=== PATIENT | female | born 1990 | race Caucasian/White ===

== ENCOUNTER 2016-05-15 09:47 | Emergency (ER) | payer BC, OTHER ==
[~2016-05-15] VITALS: Ht 172.7 cm; Wt 116.2 kg
[~2016-05-15 09:47] MED LIST: MTR600X PO; PRENTAB26 PO
[2016-05-15 09:52] VITALS: TEMP 36.8; Ht 172.7 cm; Wt 116.2 kg
[2016-05-15] MEDS ORDERED: SODIUM CHLORIDE 0.9% 1000ML 1,000 ML IV STA (10:03)
[2016-05-15] MEDS ORDERED: SODIUM CHLORIDE 0.9% 1000ML 500 ML IV STA (10:03)
[2016-05-15] MEDS ORDERED: ONDANSETRON INJ 2 MG/ML 2 ML VIAL IV STA (10:03)
[2016-05-15] MEDS ORDERED: KETOROLAC TROMETHAMINE 30 MG/ML VIAL IV STA (10:03)
--- NOTE | 2016-05-15 10:08 | EMERGENCY ROOM VISIT NOTE ---
History Report prepared by Angelika: Celso Wilson Under the Supervision of: Dr. Senthil Ya M.D. First contact with patient: 09:57 Chief Complaint: GI ASSESSMENT Stated Complaint: BLOATED AND RASH ON STOMACH History of Present Illness The patient is a 25 year old female who presents to the Emergency Room with complaints of worsening abdominal pain beginning 5 days ago. She describes her pain as feeling bloated, notes it radiates up her abdomen, is worsened with laying down, and rates her pain a 6/10 with standing which rises to a 10/10 upon laying down. She denies radiation of her pain to the back. She adds that she woke up this morning with an itchy rash on her abdomen and hips. The patient denies having any nausea, vomiting, diarrhea or urinary symptoms. She has never had these symptoms before, and reports her pain is not affected with eating. The patient notes having no known medical problems, no known drug allergies, and has not started any new medications recently. She has tried Ibuprofen for pain without relief of her symptoms. She denies any chance of , and reports having 2 children via vaginal in the past. Source of History: patient Onset: 5 days ago Position: abdomen Symptom Intensity: 6/10 with standing; 10/10 with laying down Quality: other (bloating) Timing: worsening Modifying Factors (Worsening): other (laying down) Associated Symptoms: + rash (on abdomen and hips), No diarrhea, No nausea, No urinary symptoms, No vomiting Review of Systems See HPI for pertinent positives & negatives. A total of 10 systems reviewed and were otherwise negative. Past Medical & Surgical Medical Problems: (1) Dizziness (2) LABOR (3) LABOR (4) No Known Active Medical Problems (5) (6) Urinary tract infection Family History No pertinent family history stated. Social History Smoking Status: Former Smoker Marital Status: single Occupation Status: employed Current/Historical Medications Scheduled Iud's (Paragard Intrauterine Programmer Or Analyst), 1 DOSE VAGRING DIRECTED Omeprazole (Prilosec), 20 MG PO DAILY Ranitidine (Zantac), 150 MG PO BID Allergies Coded Allergies: No Known Allergies (Unverified , 05/15/16) Physical Exam Vital Signs Date Time Temp Pulse Resp B/P Pulse Ox O2 Delivery O2 Flow Rate FiO2 05/15/16 13:45 69 16 109/71 98 Room Air 05/15/16 11:46 76 18 105/74 98 Room Air 05/15/16 09:52 36.8 124 20 107/85 97 Room Air Physical Exam GENERAL: Patient is in no acute distress. HEENT: No acute trauma, normocephalic atraumatic, mucous membranes moist, no nasal congestion, no scleral icterus. NECK: No stridor, no adenopathy, no meningismus, trachea is midline. LUNGS: Clear to auscultation bilaterally, no wheeze, no rhonchi, breath sounds equal. HEART: Tachycardic with regular rhythm; no murmurs. ABDOMEN: Soft; tenderness diffusely but mostly in the right upper quadrant; pain worsens to lie flat; bowel sounds positive, no hernias, no peritonitis. EXTREMITIES: No cyanosis or edema, full range of motion of all the joints without pain or difficulty, no signs for acute trauma. NEUROLOGIC: Oriented x 3, no acute motor or sensory deficits, no focal weakness. SKIN: No rash, no jaundice, no diaphoresis. Medical Decision & Procedures ER Provider Diagnostic Interpretation: X ray results and stated below per my interpretation and radiologist interpretation. Other radiology results and stated below per my review and radiologist interpretation: CHEST ONE VIEW PORTABLE FINDINGS: The bones soft tissues and hemidiaphragms are normal. The cardiomediastinal silhouette is normal. The lungs are clear. The pulmonary vasculature is normal. IMPRESSION: Negative chest. Electronically signed by: Chance Vicente M.D. 05/15/2016 10:17 AM Dictated Date/Time: 05/15/2016 10:17 AM ABDOMEN AND PELVIS CT WITH IV CONTRAST FINDINGS: The lung bases are clear. The liver, spleen, gallbladder, pancreas, kidneys, and adrenal glands are within normal limits. No bowel wall thickening or obstruction. The pelvic organs are unremarkable. No suspicious lytic or blastic osseous lesions. The appendix is normal. Trace amount of free fluid within the right central pelvis most likely physiologic. Nonobstructive bowel pattern. IMPRESSION: No significant abnormality identified within the abdomen or pelvis. Normal appendix. Nonobstructive bowel pattern. Electronically signed by: Chance Vicente M.D. 05/15/2016 12:49 PM Dictated Date/Time: 05/15/2016 12:47 PM Right upper quadrant ultrasound GALLBLADDER-ABD LIMITED FINDINGS: Normal gallbladder. Common bile duct is 5 mm. Liver and pancreas are uniform. The right kidney is negative for hydronephrosis. IMPRESSION: Normal study Electronically signed by: Chance Vicente M.D. 05/15/2016 12:25 PM Dictated Date/Time: 05/15/2016 12:24 PM Laboratory Results 05/15/16 10:25 Red Blood Count 4.63, Mean Corpuscular Volume 82.9, Mean Corpuscular Hemoglobin 27.9, Mean Corpuscular Hemoglobin Concent 33.6, Mean Platelet Volume 10.4, Neutrophils (%) (Auto) 59.8, Lymphocytes (%) (Auto) 17.8, Monocytes (%) (Auto) 13.2, Eosinophils (%) (Auto) 9.0, Basophils (%) (Auto) 0.1, Neutrophils # (Auto ) 4.65, Lymphocytes # (Auto) 1.39, Monocytes # (Auto) 1.03, Eosinophils # (Auto ) 0.70, Basophils # (Auto) 0.01 05/15/16 10:25 Test 05/15/16 10:25 05/15/16 10:46 White Blood Count 7.79 K/uL (4.8-10.8) Red Blood Count 4.63 M/uL (4.2-5.4) Hemoglobin 12.9 g/dL (12.0-16.0) Hematocrit 38.4 % (37-47) Mean Corpuscular Volume 82.9 fL (80-100) Mean Corpuscular Hemoglobin 27.9 pg (25-34) Mean Corpuscular Hemoglobin Concent 33.6 g/dl (32-36) Platelet Count 255 K/uL (130-400) Mean Platelet Volume 10.4 fL (7.4-10.4) Neutrophils (%) (Auto) 59.8 % Lymphocytes (%) (Auto) 17.8 % Monocytes (%) (Auto) 13.2 % Eosinophils (%) (Auto) 9.0 % Basophils (%) (Auto) 0.1 % Neutrophils # (Auto) 4.65 K/uL (1.4-6.5) Lymphocytes # (Auto) 1.39 K/uL (1.2-3.4) Monocytes # (Auto) 1.03 K/uL (0.11-0.59) Eosinophils # (Auto) 0.70 K/uL (0-0.5) Basophils # (Auto) 0.01 K/uL (0-0.2) RDW Standard Deviation 42.8 fL (36.4-46.3) RDW Coefficient of Variation 14.1 % (11.5-14.5) Immature Granulocyte % (Auto) 0.1 % Immature Granulocyte # (Auto) 0.01 K/uL (0.00-0.02) Anion Gap 11.0 mmol/L (3-11) Est Creatinine Clear Calc Drug Dose 158.3 ml/min Estimated GFR () 132.4 Estimated GFR (Non- 114.2 BUN/Creatinine Ratio 9.9 (10-20) Calcium Level 8.5 mg/dl (8.5-10.1) Total Bilirubin 0.2 mg/dl (0.2-1) Aspartate Amino Transf (AST/SGOT) 14 U/L (15-37) Alanine Aminotransferase (ALT/SGPT) 21 U/L (12-78) Alkaline Phosphatase 82 U/L (45-117) Total Protein 7.4 gm/dl (6.4-8.2) Albumin 3.2 gm/dl (3.4-5.0) Globulin 4.2 gm/dl (2.5-4.0) Albumin/Globulin Ratio 0.8 (0.9-2) Lipase 157 U/L (73-393) Human Chorionic Gonadotropin, Qual NEG (NEG) Urine Color YELLOW Urine Appearance CLEAR (CLEAR) Urine pH 5.0 (4.5-7.5) Urine Specific [place] 1.019 (1.000-1.030) Urine Protein NEG (NEG) Urine Glucose (UA) NEG (NEG) Urine Ketones NEG (NEG) Urine Occult Blood TRACE (NEG) Urine Nitrite NEG (NEG) Urine Bilirubin NEG (NEG) Urine Urobilinogen NEG (NEG) Urine Leukocyte Esterase TRACE (NEG) Urine WBC (Auto) 1-5 /hpf (0-5) Urine RBC (Auto) 0-4 /hpf (0-4) Urine Hyaline Casts (Auto) 1-5 /lpf (0-5) Urine Epithelial Cells (Auto) >30 /lpf (0-5) Urine Bacteria (Auto) NEG (NEG) Laboratory results reviewed by me. Medications Administered Medications (Trade) Dose Ordered Sig/Monico Route Start Time Stop Time Status Last Admin Dose Admin Sodium Chloride (Nss 1000ml) 500 ml @ 999 mls/hr Q31M STAT IV 05/15/16 10:03 05/15/16 10:33 DC 05/15/16 10:03 999 MLS/HR Ondansetron HCl 4 mg 4 mg NOW STAT IV 05/15/16 10:03 05/15/16 10:06 DC 05/15/16 10:40 4 MG Sodium Chloride (Nss 1000ml) 1,000 ml @ 200 mls/hr Q5H STAT IV 05/15/16 10:03 05/15/16 14:07 DC 05/15/16 10:03 200 MLS/HR Morphine Sulfate (MoRPHine SULFATE INJ) 4 mg Q30M PRN IV 05/15/16 10:15 05/15/16 14:07 DC 05/15/16 10:42 4 MG Ketorolac Tromethamine (Toradol Inj) 30 mg NOW STAT IV 05/15/16 10:03 05/15/16 10:06 DC 05/15/16 10:03 30 MG ED Course 0958: The patient was evaluated in room B3B. A complete history and physical exam was performed. 1003: Ordered Toradol Inj 30 mg IV, NSS 1,000 ml @ 200 mls/hr IV, Zofran Inj 4 mg IV, and NSS 500 ml @ 999 mls/hr IV. 1015: Ordered Morphine Sulfate 4 mg IV. 1303: I updated the patient and she is doing well. 1310: Reevaluated the patient. Discussed results and discharge instructions: She verbalized understanding and agreement. The patient is ready for discharge. Medical Decision Differentials include acute cholecystitis, biliary colic, pancreatitis, pneumonia, UTI, appendicitis, bowel obstruction, constipation, viral illness, and hernia. There is no leukocytosis or concerning anemia. No significant electrolyte abnormality, kidney failure, hepatitis or pancreatitis. Urinalysis does not show infection. testing is negative. Gallbladder ultrasound shows no gallstones or acute cholecystitis. Abdominal and pelvis CT does not show evidence for bowel obstruction, diverticulitis or appendicitis. The patient received IV morphine, IV Toradol, IV saline and IV Zofran, she feels improved. The patient's doing well, I do think she can be discharged. I will start her on medications for gastritis and stomach upset. She was prescribed Prilosec and Zantac. The patient was encouraged to stick to very simple and bland diet. If things are worsening, she will return for reassessment. She understands that at this point, the cause for the symptom complex is unclear. Impression Primary Impression: Epigastric abdominal pain Scribe Attestation The scribe's documentation has been prepared under my direction and personally reviewed by me in its entirety. I confirm that the note above accurately reflects all work, treatment, procedures, and medical decision making performed by me. Departure Information Dispostion Home / Self-Care Prescriptions Omeprazole (PRILOSEC) 20 Mg Capcr 20 MG PO DAILY, #30 CAP Prov: Senthil Ya M.D. 05/15/16 Ranitidine (Zantac) 150 Mg Tab 150 MG PO BID, #28 TAB Prov: Senthil Ya M.D. 05/15/16 Referrals No Doctor, Assigned (PCP) Patient Instructions [facility] Additional Instructions rest bland diet--crackers, soup, gatorade prilosec daily for 1 week zantac 2x per day for 2 weeks tylenol or motrin for pain return for fever, worsening symptoms all testing today was ok follow with alistair lemus this week
[2016-05-15] MEDS ORDERED: IUD'IUD VAGRING (10:12)
[2016-05-15] MEDS ORDERED: MoRPHine SULFATE 4 MG/ML 1 ML CARP\\VIAL IV PRN (10:15)
[2016-05-15] MEDS ORDERED: OPTIRAY 320 IV PRN (10:15)
--- NOTE | 2016-05-15 10:18 | DIAGNOSTIC IMAGING REPORT ---
CHEST ONE VIEW PORTABLE CLINICAL HISTORY: ABDOMINAL PAIN/GI pain COMPARISON STUDY: 01/06/2014 FINDINGS: The bones soft tissues and hemidiaphragms are normal. The cardiomediastinal silhouette is normal. The lungs are clear. The pulmonary vasculature is normal. IMPRESSION: Negative chest. Electronically signed by: Chance Vicente M.D. 05/15/2016 10:17 AM Dictated Date/Time: 05/15/2016 10:17 AM
[2016-05-15 10:36] LABS: BASO % 0.1 %; BASO ABS # 0.01 K/uL (0-0.2); COMPLETE YES; HEMATOCRIT 38.4 % (37-47); IG% 0.1 %; LYMPH % 17.8 %; LYMPH ABS # 1.39 K/uL (1.2-3.4); MEAN CELL VOLUME 82.9 fL (80-100); MEAN CORPUSCULAR HEMOGLOBIN 27.9 pg (25-34); MEAN CORPUSCULAR HGB CONC 33.6 g/dl (32-36); MEAN PLATELET VOLUME 10.4 fL (7.4-10.4); MONO % 13.2 %; NEUT % 59.8 %; PLATELET COUNT 255 K/uL (130-400); RED BLOOD COUNT 4.63 M/uL (4.2-5.4); WHITE BLOOD COUNT 7.79 K/uL (4.8-10.8)
[2016-05-15 10:45] LABS: PREG INTERNAL NEGATIVE QC NEG CLEAR BACKGROUND; PREG INTERNAL POSITIVE QC POS CONTROL LINE
[2016-05-15 10:59] LABS: URINE APPEARANCE CLEAR (CLEAR); URINE BILIRUBIN NEG (NEG); URINE COLOR YELLOW; URINE EPITHELIAL CELL AUTO >30 /lpf (0-5); URINE NITRITE NEG (NEG); URINE SPECIFIC GRAVITY 1.019 (1.000-1.030); UROBILINOGEN NEG (NEG); ZZUR CULT IF INDIC CLEAN CATCH NO
[2016-05-15 11:01] LABS: MANUAL MICROSCOPIC REQUIRED? NO; REVIEW REQ? NO
[2016-05-15 12:07] LABS: BUN/CREATININE RATIO 9.9 (10-20); CALCIUM 8.5 mg/dl (8.5-10.1); CREATININE 0.74 mg/dl (0.60-1.20); POTASSIUM 3.5 mmol/L (3.5-5.1)
[2016-05-15 12:10] LABS: ALB/GLOB RATIO 0.8 (0.9-2)
--- NOTE | 2016-05-15 12:26 | DIAGNOSTIC IMAGING REPORT ---
Right upper quadrant ultrasound GALLBLADDER-ABD LIMITED CLINICAL HISTORY: ABDOMINAL PAIN/GI pain. Nausea. TECHNIQUE: Ultrasound COMPARISON STUDY: None FINDINGS: Normal gallbladder. Common bile duct is 5 mm. Liver and pancreas are uniform. The right kidney is negative for hydronephrosis. IMPRESSION: Normal study Electronically signed by: Chance Vicente M.D. 05/15/2016 12:25 PM Dictated Date/Time: 05/15/2016 12:24 PM
--- NOTE | 2016-05-15 12:50 | DIAGNOSTIC IMAGING REPORT ---
ABDOMEN AND PELVIS CT WITH IV CONTRAST CT DOSE: 1235.48 mGy.cm HISTORY: Pain ABD PAIN, POSS APPY, IV CONTRAST ONLY TECHNIQUE: Multiaxial CT images of the abdomen and pelvis were performed following the use of intravenous contrast. COMPARISON STUDY: None. FINDINGS: The lung bases are clear. The liver, spleen, gallbladder, pancreas, kidneys, and adrenal glands are within normal limits. No bowel wall thickening or obstruction. The pelvic organs are unremarkable. No suspicious lytic or blastic osseous lesions. The appendix is normal. Trace amount of free fluid within the right central pelvis most likely physiologic. Nonobstructive bowel pattern. IMPRESSION: No significant abnormality identified within the abdomen or pelvis. Normal appendix. Nonobstructive bowel pattern. Electronically signed by: Chance Vicente M.D. 05/15/2016 12:49 PM Dictated Date/Time: 05/15/2016 12:47 PM
[2016-05-15] MEDS ORDERED: ZNTT/150 PO (13:25)
[2016-05-15] MEDS ORDERED: PRLSR20 PO (13:25)
[2016-05-15 13:45] VITALS: BP 109/71; PULSE 69; O2SAT 98
[2016-08-06] MEDS ORDERED: PRD20 PO (12:02)
[2016-08-06] MEDS ORDERED: PLMIH INH (12:02)
[2016-08-06] MEDS ORDERED: LEVO1TAB35 PO (12:03)
== END 2016-05-15 13:58 | disposition home or self-care (01) ==
LOC: C.EDB 09:48
DX: R10.13 Epigastric pain (principal); R21 Rash and other nonspecific skin eruption; Z79.899 Other long term (current) drug therapy

== ENCOUNTER 2016-08-04 22:39 | Inpatient (IN) | payer BC ==
[~2016-08-04] VITALS: Ht 172.7 cm; Wt 112.7 kg
[~2016-08-04 22:39] MED LIST changes: +IUD'IUD VAGRING; -MTR600X PO; -PRENTAB26 PO; +PRLSR20 PO; +ZNTT/150 PO
[2016-08-04] MEDS ORDERED: "\\\"MUSCLE RELAXER\\\"" PO (23:05)
[2016-08-04] MEDS ORDERED: ONDANSETRON INJ 2 MG/ML 2 ML VIAL IV STA (23:12)
[2016-08-04] MEDS ORDERED: SODIUM CHLORIDE 0.9% 1000ML 1,000 ML IV ONE (23:15)
[2016-08-04] MEDS ORDERED: MoRPHine SULFATE 4 MG/ML 1 ML CARP\\VIAL IV ONE (23:15)
[2016-08-04 23:51] LABS: BASO % 0.1 %; BASO ABS # 0.01 K/uL (0-0.2); COMPLETE YES; EOS % 6.6 %; HEMATOCRIT 37.1 % (37-47); IG% 0.3 %; LYMPH % 12.4 %; LYMPH ABS # 1.46 K/uL (1.2-3.4); MEAN CELL VOLUME 84.1 fL (80-100); MEAN CORPUSCULAR HEMOGLOBIN 28.6 pg (25-34); MEAN PLATELET VOLUME 10.6 fL (7.4-10.4); MONO % 10.7 %; NEUT % 69.9 %; PLATELET COUNT 228 K/uL (130-400); RED BLOOD COUNT 4.41 M/uL (4.2-5.4); WHITE BLOOD COUNT 11.82 K/uL (4.8-10.8)
[2016-08-04 23:57] LABS: URINE APPEARANCE CLOUDY (CLEAR); URINE BILIRUBIN NEG (NEG); URINE COLOR YELLOW; URINE EPITHELIAL CELL AUTO >30 /lpf (0-5); URINE NITRITE NEG (NEG); URINE SPECIFIC GRAVITY 1.029 (1.000-1.030); UROBILINOGEN NEG (NEG); ZZUR CULT IF INDIC CLEAN CATCH YES
[2016-08-05 00:04] LABS: MANUAL MICROSCOPIC REQUIRED? NO; REVIEW REQ? NO
[2016-08-05 00:12] LABS: BUN/CREATININE RATIO 10.1 (10-20); CALCIUM 8.3 mg/dl (8.5-10.1); CREATININE 0.63 mg/dl (0.60-1.20); MAGNESIUM 1.8 mg/dl (1.8-2.4); POTASSIUM 3.3 mmol/L (3.5-5.1)
[2016-08-05 00:15] LABS: ALB/GLOB RATIO 0.8 (0.9-2)
[2016-08-05] MEDS ORDERED: OPTIRAY 320 IV PRN (00:15)
[2016-08-05 04:00] VITALS: BP 98/69; PULSE 98; TEMP 36.8; O2SAT 97; Ht 172.7 cm; Wt 112.7 kg
--- NOTE | 2016-08-05 04:35 | History and Physical ---
History & Physical Date & Time of Service: Aug 05, 2016 at 04:26 Chief Complaint: Back Pain, Lungs Hurt, Hurts To Breath Primary Care Physician: Malcolm Borrego M.D. History of Present Illness Source: patient 26 y/o F without significant medical history presents with acute onset of L upper back pain which is exacerbated with deep breaths. She denies a cough, fever, malaise or congestion. She was evaluated in the ER and had an elevated D Dimer on initial labs. She was subsequently sent for a contrast CT. This was negative for PE but was consistent with a L upper lobe PNM in addition to mucous plugging and small B/L pleural effusions. Past Medical/Surgical History Medical Problems: (1) Dizziness Status: Resolved (2) LABOR Status: Resolved (3) LABOR Status: Resolved (4) Status: Resolved (5) Urinary tract infection Status: Resolved Family History Both parents alive and well Grandmother with lung CA Grandfather with Prostate CA Social History Lives at home with 2 young children - denies sick contacts Smoking Status: Never Smoker Alcohol Use: none Drug Use: none Marital Status: single Occupational Status: employed Immunizations History of Influenza Vaccine: Unknown History of Tetanus Vaccine?: Yes Multi-Drug Resistant Organisms History of MDRO: No Allergies Coded Allergies: No Known Allergies (Unverified , 08/04/16) Home Medications Scheduled Iud's (Paragard Intrauterine Skin Grader), 1 DOSE VAGRING DIRECTED ["Muscle Relaxer"], 1 DOSE PO DIRECTED Review of Systems Constitutional: No chills, No fever, No sweats Eyes: No eye pain, No worsening of vision ENT: No hearing loss, No nasal symptoms, No unusual epistaxis Respiratory: + problem reported (Pleuritic back pain), No cough, No sputum, No wheezing Cardiovascular: No PND, No chest pain, No orthopnea Abdomen: No nausea, No pain, No vomiting Musculoskeletal: + problem reported (Pleuritic back pain), No joint pain Genitourinary - Female: No dysuria, No hematuria, No urinary frequency, No urinary incontinence, No urinary retention, No urinary urgency Neurologic: No memory loss, No paralysis, No weakness Psychiatric: No depression symptoms Endocrine: No fatigue Hematologic / Lymphatic: No abnormal bleeding/bruising Integumentary: No rash Allergic / Immunologic: No environmental allergies Physical Exam Vital Signs Date Time Temp Pulse Resp B/P Pulse Ox O2 Delivery O2 Flow Rate FiO2 08/05/16 01:45 102 18 115/78 98 Room Air 08/04/16 23:40 114 08/04/16 23:37 98 Room Air 08/04/16 22:41 37.2 127 18 118/83 98 Room Air General Appearance: WD/WN, no apparent distress Head: normocephalic Eyes: normal inspection ENT: normal ENT inspection, pharynx normal Neck: supple, no JVD Respiratory/Chest: chest non-tender, lungs clear, normal breath sounds, no respiratory distress, no accessory muscle use Cardiovascular: regular rate, rhythm, no edema, no gallop, no JVD, no murmur Abdomen/GI: normal bowel sounds, non tender, soft Back: normal inspection, no CVA tenderness Extremities/Musculoskelatal: normal inspection, no calf tenderness, normal capillary refill, no pedal edema, normal range of motion Neurologic/Psych: pin drafting machine tender II-XII nml as tested, no motor/sensory deficits, alert, normal mood/affect, normal reflexes, oriented x 3 Skin: normal color, warm/dry, no rash Diagnostics Laboratory Results Results Past 24 Hours Test 08/04/16 23:30 08/04/16 23:34 Range/Units White Blood Count 11.82 4.8-10.8 K/uL Red Blood Count 4.41 4.2-5.4 M/uL Hemoglobin 12.6 12.0-16.0 g/dL Hematocrit 37.1 37-47 % Mean Corpuscular Volume 84.1 80-100 fL Mean Corpuscular Hemoglobin 28.6 25-34 pg Mean Corpuscular Hemoglobin Concent 34.0 32-36 g/dl Platelet Count 228 130-400 K/uL Mean Platelet Volume 10.6 7.4-10.4 fL Neutrophils (%) (Auto) 69.9 % Lymphocytes (%) (Auto) 12.4 % Monocytes (%) (Auto) 10.7 % Eosinophils (%) (Auto) 6.6 % Basophils (%) (Auto) 0.1 % Neutrophils # (Auto) 8.28 1.4-6.5 K/uL Lymphocytes # (Auto) 1.46 1.2-3.4 K/uL Monocytes # (Auto) 1.26 0.11-0.59 K/uL Eosinophils # (Auto) 0.78 0-0.5 K/uL Basophils # (Auto) 0.01 0-0.2 K/uL RDW Standard Deviation 46.8 36.4-46.3 fL RDW Coefficient of Variation 15.0 11.5-14.5 % Immature Granulocyte % (Auto) 0.3 % Immature Granulocyte # (Auto) 0.03 0.00-0.02 K/uL Urine Color YELLOW Urine Appearance CLOUDY CLEAR Urine pH 5.0 4.5-7.5 Urine Specific [place] 1.029 1.000-1.030 Urine Protein TRACE NEG Urine Glucose (UA) NEG NEG Urine Ketones NEG NEG Urine Occult Blood NEG NEG Urine Nitrite NEG NEG Urine Bilirubin NEG NEG Urine Urobilinogen NEG NEG Urine Leukocyte Esterase MODERATE NEG Urine WBC (Auto) >30 0-5 /hpf Urine RBC (Auto) 0-4 0-4 /hpf Urine Hyaline Casts (Auto) 10-30 0-5 /lpf Urine Epithelial Cells (Auto) >30 0-5 /lpf Urine Bacteria (Auto) 2+ NEG Sodium Level 136 136-145 mmol/L Potassium Level 3.3 3.5-5.1 mmol/L Chloride Level 104 98-107 mmol/L Carbon Dioxide Level 26 21-32 mmol/L Anion Gap 6.0 3-11 mmol/L Blood Urea Nitrogen 6 7-18 mg/dl Creatinine 0.63 0.60-1.20 mg/dl Est Creatinine Clear Calc Drug Dose 182.1 ml/min Estimated GFR () 145.5 Estimated GFR (Non- 125.5 BUN/Creatinine Ratio 10.1 10-20 Random Glucose 106 70-99 mg/dl Calcium Level 8.3 8.5-10.1 mg/dl Magnesium Level 1.8 1.8-2.4 mg/dl Total Bilirubin 0.3 0.2-1 mg/dl Aspartate Amino Transf (AST/SGOT) 12 15-37 U/L Alanine Aminotransferase (ALT/SGPT) 19 12-78 U/L Alkaline Phosphatase 82 45-117 U/L Total Protein 6.9 6.4-8.2 gm/dl Albumin 3.1 3.4-5.0 gm/dl Globulin 3.8 2.5-4.0 gm/dl Albumin/Globulin Ratio 0.8 0.9-2 Lipase 108 73-393 U/L Bedside D-Dimer > 450 0-450 ng/mlFEU Bedside Troponin I 0.000 0-0.045 ng/ml Microbiology Results 08/04/16 Urine Culture, Received Pending Diagnostic Radiology CTA RUL consolidation, distal mucous plugging, hazy b/l basal opacities Impression Assessment and Plan 26 y/o F without significant medical history presents with acute onset of L upper back pain which is exacerbated with deep breaths. She denies a cough, fever, malaise or congestion. She was evaluated in the ER and had an elevated D Dimer on initial labs. She was subsequently sent for a contrast CT. This was negative for PE but was consistent with a L upper lobe PNM in addition to mucous plugging and small B/L pleural effusions. Pt will be treated for PNM with IV Levaquin. She does not have risk factors for TB and is minimally symptomatic. We have therefore consulted pulmonology to help determine if she needs further workup based on her CT or if she can be D /Cd with oral antibiotics befitting her symptoms. Lovenox prophylaxis - full code Total time for this admit including review of labs, meds, imaging, records - discussion with pt and ER MD - 28 min Level of Care Med/Surg Resuscitation Status FULL RESUSCITATION VTE Prophylaxis Given or contraindicated: Enoxaparin (Lovenox)SQ
[2016-08-05] MEDS ORDERED: ZOLPIDEM TARTRATE 5 MG TAB PO PRN (06:00)
[2016-08-05] MEDS ORDERED: ACETAMINOPHEN 325 MG TAB PO PRN (06:00)
[2016-08-05] MEDS: LEVOFLOXACIN 750MG / D5W IV SCH (06:00)
[2016-08-05 07:10] VITALS: BP 93/55; PULSE 88; TEMP 36.8; O2SAT 99
--- NOTE | 2016-08-05 07:21 | EMERGENCY ROOM VISIT NOTE ---
History First contact with patient: 23:05 Chief Complaint: BACK PAIN Stated Complaint: PNEUMONIA, BACK PAIN History of Present Illness The patient is a 26 year old female who presents to the Emergency Room with complaints of vague right-sided back pain that began earlier today. The patient states that her pain worsens when she takes a deep breath. The pain will occasionally radiate into her chest. She has had no fever at home and is not taking anything [id number] for her symptoms. The patient does not report abdominal pain, nausea, or vomiting. Her symptoms do not appear to improve or worsen with position or movement of the shoulder. She is not having left-sided symptoms and rates her current discomfort a 7/10. Review of Systems More than 10 systems were reviewed and otherwise negative with the exception of history of present illness. 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 Vital signs with tachycardia GENERAL: Well-developed, well-nourished, white female, who is cooperative with the examination. HEAD: Normocephalic atraumatic. EARS: External ear normal. External auditory canals clear, tympanic membranes pearly watson without erythema or effusion bilaterally. EYES: Pupils equal round and reactive to light and accommodation. Conjunctivae without injection, sclerae without icterus. Extraocular movements intact. NOSE: Patent, turbinates without inflammation or discharge. MOUTH: Mucous membranes moist. Tonsils are not enlarged. Pharynx without erythema, blood, or exudate. Uvula midline. Airway patent. NECK: Supple without nuchal rigidity. No lymphadenopathy. No thyromegaly. Cervical spine is nontender. HEART: Tachycardic rate with regular rhythm. No murmur gallop or rub. LUNGS: Clear to auscultation bilaterally without wheezes, rales or rhonchi. No retractions or accessory muscle use. ABDOMEN: Normal bowel sounds 4. No tenderness on palpation. No appreciable masses. MUSCULOSKELETAL: No muscle atrophy, erythema, or edema noted. Full range of motion without joint tenderness in all extremities. Negative Homans sign. Medical Decision & Procedures ER Provider Diagnostic Interpretation: Preliminary Findings Only See Final Report For Complete Findings CTA CHEST: No PE. Aorta unremarkable. Posterior right upper lobe peripheral consolidation and distal bronchial mucus impaction with surrounding airspace opacities. More subtle groundglass opacities remainder of the right upper lobe. Hazy opacities bilateral lower lobes. Findings worrisome for infection. Tiny bilateral pleural effusions. Small mediastinal lymph nodes. Laboratory Results 08/04/16 23:30 Red Blood Count 4.41, Mean Corpuscular Volume 84.1, Mean Corpuscular Hemoglobin 28.6, Mean Corpuscular Hemoglobin Concent 34.0, Mean Platelet Volume 10.6, Neutrophils (%) (Auto) 69.9, Lymphocytes (%) (Auto) 12.4, Monocytes (%) (Auto) 10.7, Eosinophils (%) (Auto) 6.6, Basophils (%) (Auto) 0.1, Neutrophils # (Auto ) 8.28, Lymphocytes # (Auto) 1.46, Monocytes # (Auto) 1.26, Eosinophils # (Auto ) 0.78, Basophils # (Auto) 0.01 08/04/16 23:30 Test 08/04/16 23:30 08/04/16 23:34 White Blood Count 11.82 K/uL (4.8-10.8) Red Blood Count 4.41 M/uL (4.2-5.4) Hemoglobin 12.6 g/dL (12.0-16.0) Hematocrit 37.1 % (37-47) Mean Corpuscular Volume 84.1 fL (80-100) Mean Corpuscular Hemoglobin 28.6 pg (25-34) Mean Corpuscular Hemoglobin Concent 34.0 g/dl (32-36) Platelet Count 228 K/uL (130-400) Mean Platelet Volume 10.6 fL (7.4-10.4) Neutrophils (%) (Auto) 69.9 % Lymphocytes (%) (Auto) 12.4 % Monocytes (%) (Auto) 10.7 % Eosinophils (%) (Auto) 6.6 % Basophils (%) (Auto) 0.1 % Neutrophils # (Auto) 8.28 K/uL (1.4-6.5) Lymphocytes # (Auto) 1.46 K/uL (1.2-3.4) Monocytes # (Auto) 1.26 K/uL (0.11-0.59) Eosinophils # (Auto) 0.78 K/uL (0-0.5) Basophils # (Auto) 0.01 K/uL (0-0.2) RDW Standard Deviation 46.8 fL (36.4-46.3) RDW Coefficient of Variation 15.0 % (11.5-14.5) Immature Granulocyte % (Auto) 0.3 % Immature Granulocyte # (Auto) 0.03 K/uL (0.00-0.02) Urine Color YELLOW Urine Appearance CLOUDY (CLEAR) Urine pH 5.0 (4.5-7.5) Urine Specific [place] 1.029 (1.000-1.030) Urine Protein TRACE (NEG) Urine Glucose (UA) NEG (NEG) Urine Ketones NEG (NEG) Urine Occult Blood NEG (NEG) Urine Nitrite NEG (NEG) Urine Bilirubin NEG (NEG) Urine Urobilinogen NEG (NEG) Urine Leukocyte Esterase MODERATE (NEG) Urine WBC (Auto) >30 /hpf (0-5) Urine RBC (Auto) 0-4 /hpf (0-4) Urine Hyaline Casts (Auto) 10-30 /lpf (0-5) Urine Epithelial Cells (Auto) >30 /lpf (0-5) Urine Bacteria (Auto) 2+ (NEG) Anion Gap 6.0 mmol/L (3-11) Est Creatinine Clear Calc Drug Dose 182.1 ml/min Estimated GFR () 145.5 Estimated GFR (Non- 125.5 BUN/Creatinine Ratio 10.1 (10-20) Calcium Level 8.3 mg/dl (8.5-10.1) Magnesium Level 1.8 mg/dl (1.8-2.4) Total Bilirubin 0.3 mg/dl (0.2-1) Aspartate Amino Transf (AST/SGOT) 12 U/L (15-37) Alanine Aminotransferase (ALT/SGPT) 19 U/L (12-78) Alkaline Phosphatase 82 U/L (45-117) Total Protein 6.9 gm/dl (6.4-8.2) Albumin 3.1 gm/dl (3.4-5.0) Globulin 3.8 gm/dl (2.5-4.0) Albumin/Globulin Ratio 0.8 (0.9-2) Lipase 108 U/L (73-393) Bedside D-Dimer > 450 ng/mlFEU (0-450) Bedside Troponin I 0.000 ng/ml (0-0.045) Medications Administered Medications (Trade) Dose Ordered Sig/Monico Route Start Time Stop Time Status Last Admin Dose Admin Sodium Chloride (Nss 1000ml) 1,000 ml @ 999 mls/hr Q1H1M ONCE IV 08/04/16 23:15 08/05/16 00:15 DC 08/04/16 23:51 999 MLS/HR Ondansetron HCl (Zofran Inj) 4 mg NOW STAT IV 08/04/16 23:12 08/04/16 23:14 DC 08/04/16 23:51 4 MG Morphine Sulfate (MoRPHine SULFATE INJ) 4 mg NOW ONCE IV 08/04/16 23:15 08/04/16 23:16 DC 08/04/16 23:51 4 MG ED Course Physical exam and history were performed. Nursing notes and EMR were reviewed. Patient appears to have vague right sided shoulder pain/chest pain that began earlier today. Her symptoms do not appear to be exacerbated with range of motion. The patient is tachycardic without fever. IV access was established and labs were obtained. Review of EMR shows the patient was previously seen at this facility for gastritis symptoms. Because of this and did elect to perform plain films of the chest and abdomen. The patient blood work is as above and was reviewed. She does have a mildly elevated white blood cell count. She does not have a significant anemia, bandemia, or gross electrolyte imbalance. Her plain films do not show free air under the diaphragm, but are concerning for a possible right middle/right upper lobe process. Because of this, and an elevated d-dimer, a CT scan of the chest was performed. CT scan appears to show a right upper consolidation consistent with pneumonia. There is also concern for mucous impaction. There is no evidence of PE. I did gather additional history from the patient and she does not have risk factors for tuberculosis or known exposure to disease. Clinically she does have an elevated white blood cell count and is tachycardic with an infectious process. The patient was given IV Levaquin here in the department. The case was discussed with the on-call hospitalist, who agreed to evaluate the patient here in the emergency department for further management. Please see their dictation for further patient course, plan, and disposition. The chart was completed utilizing [employer] Speech Voice Recognition Software. Grammatical errors, random word insertions, pronoun errors, and incomplete sentences are an occasional consequence of this system due to software limitations, ambient noise, and hardware issues. Any formal questions or concerns about the content, text, or information contained within the body of this dictation should be directly addressed to the provider for clarification. . Medical Decision Differential diagnosis includes, but is not limited to: Myocardial infarction, dysrhythmia, pericarditis, pneumothorax, aortic aneurysm/dissection, DVT/PE, anxiety, GERD, PUD, electrolyte imbalance, thyroid disorder, pneumonia, bronchitis, pancreatitis, and others Impression Primary Impression: Pneumonia Departure Information Dispostion Still a Patient Condition FAIR Referrals Malcolm Borrego M.D. (PCP) Forms HOME CARE DOCUMENTATION FORM, IMPORTANT VISIT INFORMATION Patient Instructions My [facility]
--- NOTE | 2016-08-05 07:29 | DIAGNOSTIC IMAGING REPORT ---
PA CHEST WITH ABDOMINAL SERIES CLINICAL HISTORY: Right-sided chest pain. FINDINGS: A PA chest radiograph is compared to study dated 05/15/16. The cardiomediastinal silhouette is unremarkable. There is patchy airspace consolidation identified in the right midlung. The lungs are otherwise clear. No large pleural effusion or Pneumothorax is seen. The bony thorax is grossly intact. Supine and erect abdominal radiographs are correlated with abdominal CT dated 05/15/16. There is a nonobstructed abdominal bowel gas pattern. No evidence of intraperitoneal free air is seen. Mild colonic fecal retention is noted. An intrauterine device and numerous phleboliths are seen in the pelvis. The Lumbosacral spine and bony pelvis appear intact. IMPRESSION: 1. There is patchy airspace consolidation identified in the right midlung. Cortical clinically for evidence of pneumonia. Radiographic follow-up to resolution is recommended. 2. Nonobstructed abdominal bowel gas pattern. Electronically signed by: Senthil Power M.D. 08/05/2016 7:28 AM Dictated Date/Time: 08/05/2016 7:26 AM
--- NOTE | 2016-08-05 07:33 | DIAGNOSTIC IMAGING REPORT ---
CT ANGIOGRAM OF THE CHEST CLINICAL HISTORY: Right-sided chest pain. COMPARISON STUDY: Chest x-ray dated 08/04/2016. TECHNIQUE: Following the IV administration of 92 cc of Optiray 320, CT angiogram of the chest was performed from the upper abdomen to the thoracic inlet utilizing the pulmonary embolus protocol. Images are reviewed in the axial, sagittal, and coronal planes. 3-D MIPS images are created and assessed. IV contrast was administered without complication. CT DOSE: 465.34 mGy.cm FINDINGS: Thyroid: Imaged portions of the thyroid gland are normal in size and attenuation. Thoracic aorta: The thoracic aorta is normal in caliber and demonstrates standard 3-vessel arch anatomy. No dissection is seen. Pulmonary vasculature: The pulmonary trunk is dilated, measuring 4.0 cm. This indicates pulmonary artery hypertension. There are no filling defects identified in main, lobar, or segmental pulmonary branches to suggest pulmonary embolus. Heart: The heart is appears mildly enlarged and there is trace pericardial effusion. Lungs and pleural spaces: There is patchy airspace consolidation identified in the right upper lobe. There are trace pleural effusions, right larger than left and dependent atelectasis. Mediastinum: There is no mediastinal lymphadenopathy. Janeen: Clear. Axillae: There is no axillary lymphadenopathy. Upper abdomen: Partially visualized upper abdominal viscera is within normal limits. Skeletal structures: No lytic or blastic bony lesions are seen. IMPRESSION: 1. There is no evidence of pulmonary embolus in the main, lobar, or segmental pulmonary arteries. 2. There is patchy airspace consolidation in the right upper lobe typical in appearance for pneumonia. Radiographic follow-up to resolution is recommended. 3. Cardiomegaly with evidence of pulmonary artery hypertension. Cardiology follow-up is recommended. 4. Trace pleural effusions. Electronically signed by: Senthil Power M.D. 08/05/2016 7:32 AM Dictated Date/Time: 08/05/2016 7:28 AM
[2016-08-05] MEDS: TRAMADOL HCL 50 MG TAB PO PRN ×2 (08:21→19:08)
[2016-08-05] MEDS: POTASSIUM CHLR 10 MEQ / WTR 10 MEQ in PREMIXED WATER 100 ML IV SCH ×2 (08:30→09:44)
--- NOTE | 2016-08-05 11:32 | Progress Note ---
Progress Note Date of Service Aug 05, 2016. Progress Note Patient seen and examined at bedside. c/o right upper back discomfort, pleuritic no sob with ambulation, no abd pain, no urinary symptoms +sick contacts at work Vital Signs Date Time Temp Pulse Resp B/P Pulse Ox O2 Delivery O2 Flow Rate FiO2 08/05/16 07:10 36.8 88 18 93/55 99 08/05/16 04:00 Room Air nad, aox3, anicteric s1 s2 rrr, no murmurs appreciated ctab no w/r/r abd soft nt/nd +BS no LE edema will monitor overnight pulmonary eval and recs appreciated mucolytics for mucus plugging steroids levaquin for pneumonia
[2016-08-05] MEDS ORDERED: DORNASE ALFA (2500U) 2.5MG/2.5ML INH ONE (12:00)
[2016-08-05] MEDS: METHYLPREDNISOLONE IV 40 MG in SYRINGE 0 ML IV SCH ×2 (13:03→19:29)
--- NOTE | 2016-08-05 14:13 | CONSULTATION REPORT ---
DATE OF CONSULTATION: 08/05/2016 REASON FOR CONSULTATION: Right upper lobe pneumonia. HISTORY OF PRESENT ILLNESS: The patient is a 26-year-old female with really no significant past medical history who presented to [facility] Emergency Room late on the evening of 08/04/2016. She presented because of right back pain which had progressed. The back pain started approximately a day and a half prior to admission and the patient states that because she was moving out from her parents' house she thought it was from possibly moving or that one of her small children had inadvertently traumatized the area during sleep, so she took some ibuprofen which she did get a little bit of improvement with initially; however, the next day the pain came back and was much worse. She tried ibuprofen again, she also tried muscle relaxer without any significant improvement. She states that the pain was getting to the point where she felt it was hard to take deep breath in. She also felt it was difficult to swallow due to the discomfort. Initially, she did not really have much cough or wheeze; however, since she has been in the hospital, she has started to cough a little bit more. She has not had any fever or chills. She has felt a little bit more run down and tired, but she thought that was secondary to moving. She has not really felt congested in her chest. She has noticed that since she has been in the hospital, her shortness of breath has worsened and she is coughing much more. On reviewing the ER records when she came in, she did have an elevated D-dimer. She did have a CT to rule out pulmonary embolism. There was no evidence of pulmonary embolism on the CAT scan, however, did show a right upper lobe pneumonia as well as some trace bilateral pleural effusion. The patient denies any other concerns or problems at this time. She has not had any unusual headache or lightheadedness. No dizziness, no vision changes. She has not had any GI symptoms. No nausea or vomiting. Her appetite has been normal. She has not had any difficulties with diarrhea or constipation. Her bowels are moving normally. She has not had any cardiac symptoms. No palpitations. No cardiac type chest pain. She is voiding well. No hesitancy or urgency. She states that her last menstrual period was about 2-3 weeks ago. She does use an IUD for contraception. She has not had any difficulty with swelling in her extremities. As far as risk factor she is a former smoker. She smoked 1-2 cigarettes a day for approximately 2-3 years. 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 She also has had multiple tattoos placed; however, these are several years old. She states that she did get these from a well established, they did use fresh needle. The patient's main concern today is the increasing discomfort. She states that she thinks they are giving her tramadol for the pain. She states that last night it helped, but today it does not seem to be improving much. She has not had any other concerns or problems at this time. PAST MEDICAL HISTORY: Includes dizziness and UTI. PAST SURGICAL HISTORY: None. FAMILY HISTORY: She had a grandmother with lung cancer. Grandfather with prostate cancer. SOCIAL HISTORY: The patient is a former smoker having smoked 1-2 cigarettes a day. She is single with 2 children. Occasionally consumes alcohol. 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 She does get a PPD done yearly. HOME MEDICATIONS: Occasional muscle relaxers as needed. She also has an IUD placed. ALLERGIES: She has no known drug allergies. REVIEW OF SYSTEMS: As above, otherwise unremarkable. PHYSICAL EXAMINATION: GENERAL: The patient is a 26-year-old female sitting up in bed. She is alert and oriented x3. Mood is good. Affect is good. She is in no acute distress, no respiratory distress. She does appear uncomfortable at times with taking a deep breath and she is able to complete sentences without difficulty. HEENT: Normocephalic, atraumatic. Pupils equal, round and reactive to light and accommodation. Extraocular movements are intact. Moist gingival and buccal mucosa. NECK: Supple. No mass. No adenopathy. No bruit. Nontender to palpation. No JVD or thyromegaly. CHEST: The patient has diminished breath sounds on the right upper quadrant when listening posteriorly. I do not appreciate any wheeze, rales or rhonchi at this time. CARDIOVASCULAR: Regular rate and rhythm. The patient is slightly tachycardic today. There are no murmurs, gallops or rubs noted. ABDOMEN: Bowel sounds are present. Abdomen is soft and nontender. No guarding, rigidity or organomegaly. EXTREMITIES: No erythema or edema. NEUROLOGIC: Cranial nerves II through XII are intact. No focal deficit. VITAL SIGNS: Temp 36.8, pulse 88, respirations 18, blood pressure 93/55, pulse ox 99% on room air. LABORATORY DATA: Shows a white count of 11,000, H\T\H 12.6 and 37.1, platelet count of 228,000. Urine culture is pending. CT of the chest shows a right upper lobe consolidation, which is located posteriorly. In reviewing the images, the patient does have trace pleural effusion in the right. There is what appears to be some atelectatic changes in the bases bilaterally. IMPRESSION: This is a 26-year-old female with what appears to be a right upper lobe pneumonia that is located posteriorly and near enough to the pleural lining that I think she is getting some pleurisy and pleuritic type pain from this. I think this is the cause of her discomfort. I also think that she is getting some atelectatic changes from trying not to take deep breath due to the discomfort as well. At this point, I agree with the antibiotics that she is on. I would like to start her on some Solu-Medrol to see if it will both help with the respiratory as well as with the inflammation of the pleural lining, and see if we can get her a little bit of relief discomfort [place]. It looks like there may be some mucus present as well, so I would like start her on Dornase as well. We have planned also on incentive spirometer to see if we can expand the bases bilaterally. At this point, I would recommend to keep her at least overnight and reevaluate tomorrow. If she is doing well tomorrow, then would anticipate that she can probably be discharged to home. This was discussed with her. She is agreeable with this. Will continue to follow through hospitalization. Patient and history reviewed and plan agreed with. AKBAR
[2016-08-05] MEDS: LEVALBUTEROL 1.25MG/3ML NEB INH SCH ×2 (15:00→19:06)
[2016-08-05 15:06] VITALS: BP 107/55; PULSE 69; TEMP 36.6; O2SAT 98
[2016-08-05 15:09] VITALS: BP 107/72; PULSE 116; TEMP 37.1; O2SAT 97
[2016-08-05 16:21] VITALS: PULSE 78; O2SAT 99
[2016-08-05 19:06] VITALS: PULSE 79; O2SAT 95
[2016-08-05] MEDS ORDERED: DORNASE ALFA (2500U) 2.5MG/2.5ML INH SCH (20:00)
[2016-08-06 00:04] VITALS: BP 112/71; PULSE 92; TEMP 36.4; O2SAT 96
[2016-08-06] MEDS: LEVALBUTEROL 1.25MG/3ML NEB INH SCH (01:10)
[2016-08-06] MEDS: METHYLPREDNISOLONE IV 40 MG in SYRINGE 0 ML IV SCH ×2 (04:16→11:48)
[2016-08-06] MEDS: LEVOFLOXACIN 750MG / D5W IV SCH (06:11)
[2016-08-06 07:06] VITALS: BP 112/62; PULSE 80; TEMP 36.7; O2SAT 99
[2016-08-06 08:00] VITALS: O2SAT 99
[2016-08-06 08:55] LABS: BASO % 0.1 %; BASO ABS # 0.01 K/uL (0-0.2); COMPLETE YES; HEMATOCRIT 38.7 % (37-47); IG% 0.3 %; MEAN CELL VOLUME 83.6 fL (80-100); MEAN CORPUSCULAR HEMOGLOBIN 28.3 pg (25-34); MEAN CORPUSCULAR HGB CONC 33.9 g/dl (32-36); MEAN PLATELET VOLUME 10.5 fL (7.4-10.4); MONO % 1.7 %; NEUT % 87.9 %; PLATELET COUNT 288 K/uL (130-400); RED BLOOD COUNT 4.63 M/uL (4.2-5.4)
--- NOTE | 2016-08-06 08:56 | DIAGNOSTIC IMAGING REPORT ---
TWO VIEW CHEST CLINICAL HISTORY: Pneumonia. FINDINGS: PA and lateral chest radiographs are compared to study dated 08/04/2016 and correlated with chest CT dated 08/05/2016. The cardiomediastinal silhouette is unremarkable. Patchy airspace consolidation is again seen in the right upper lobe. There is increasing bibasilar consolidation, left greater than right. Small pleural effusions are identified. There is no pneumothorax. The bony thorax appears intact. IMPRESSION: Multifocal airspace consolidation as above with small pleural effusions. Consolidative change at the lung bases has increased from previous. Electronically signed by: Senthil Power M.D. 08/06/2016 8:54 AM Dictated Date/Time: 08/06/2016 8:53 AM
[2016-08-06 09:20] LABS: BUN/CREATININE RATIO 11.9 (10-20); CREATININE 0.58 mg/dl (0.60-1.20); MAGNESIUM 1.9 mg/dl (1.8-2.4); POTASSIUM 3.5 mmol/L (3.5-5.1)
[2016-08-06 09:35] LABS: CALCIUM 9.5 mg/dl (8.5-10.1)
--- NOTE | 2016-08-06 11:59 | Death Summary ---
Summary of Admission Date Aug 05, 2016 at 03:00 Date & Time of Aug 06, 2016.
[2016-08-06] MEDS ORDERED: PRD20 PO (12:02)
[2016-08-06] MEDS ORDERED: PLMIH INH (12:02)
[2016-08-06] MEDS ORDERED: LEVO1TAB35 PO (12:03)
--- NOTE | 2016-08-06 12:04 | Discharge Summary ---
Discharge Summary Date of Service Aug 06, 2016. Discharge Summary Admission Date: Aug 05, 2016 at 03:00 Discharge Date: Aug 06, 2016 Discharge Disposition: Home Principal Diagnosis: Pneumonia Immunizations: Have You Had Influenza Vaccine: Unknown History of Tetanus Vaccine?: Yes Procedures: CT ANGIOGRAM OF THE CHEST CLINICAL HISTORY: Right-sided chest pain. COMPARISON STUDY: Chest x-ray dated 08/04/2016. TECHNIQUE: Following the IV administration of 92 cc of Optiray 320, CT angiogram of the chest was performed from the upper abdomen to the thoracic inlet utilizing the pulmonary embolus protocol. Images are reviewed in the axial, sagittal, and coronal planes. 3-D MIPS images are created and assessed. IV contrast was administered without complication. CT DOSE: 465.34 mGy.cm FINDINGS: Thyroid: Imaged portions of the thyroid gland are normal in size and attenuation. Thoracic aorta: The thoracic aorta is normal in caliber and demonstrates standard 3-vessel arch anatomy. No dissection is seen. Pulmonary vasculature: The pulmonary trunk is dilated, measuring 4.0 cm. This indicates pulmonary artery hypertension. There are no filling defects identified in main, lobar, or segmental pulmonary branches to suggest pulmonary embolus. Heart: The heart is appears mildly enlarged and there is trace pericardial effusion. Lungs and pleural spaces: There is patchy airspace consolidation identified in the right upper lobe. There are trace pleural effusions, right larger than left and dependent atelectasis. Mediastinum: There is no mediastinal lymphadenopathy. Janeen: Clear. Axillae: There is no axillary lymphadenopathy. Upper abdomen: Partially visualized upper abdominal viscera is within normal limits. Skeletal structures: No lytic or blastic bony lesions are seen. IMPRESSION: 1. There is no evidence of pulmonary embolus in the main, lobar, or segmental pulmonary arteries. 2. There is patchy airspace consolidation in the right upper lobe typical in appearance for pneumonia. Radiographic follow-up to resolution is recommended. 3. Cardiomegaly with evidence of pulmonary artery hypertension. Cardiology follow-up is recommended. 4. Trace pleural effusions. Medication Reconciliation New Medications: Levofloxacin (Levaquin) 750 Mg Tab 750 MG PO DAILY for 5 Days, #5 TAB Prednisone (Prednisone) 20 Mg Tab 20 MG PO DAILY, #7 TAB take 40 mg daily for 2 days then take 20 mg daily for 2 days then take 10 mg daily for 2 days then stop Dornase Jacques (Pulmozyme) 2.5 Ml Inha 2.5 ML INH BIDR, #1 INHA Continued Medications: Iud's (Paragard Intrauterine Sampler Pickup) 1 Iud Iud 1 DOSE VAGRING DIRECTED ["Muscle Relaxer"] () 1 DOSE PO DIRECTED PT TOOK "ONE OF MY MOTHER'S MUSCLE RELAXERS". Hospital Course 26 y/o F without significant medical history presents with acute onset of L upper back pain which is exacerbated with deep breaths. She denies a cough, fever, malaise or congestion. She was evaluated in the ER and had an elevated D Dimer on initial labs. She was subsequently sent for a contrast CT. This was negative for PE but was consistent with a L upper lobe PNM in addition to mucous plugging and small B/L pleural effusions. She was treated for pneumonia with levaquin and she will finish 5 more days for a full 7-day course. She was seen by pulmonary and was started on steroids and dornase. She improved overnight with good sats and will be discharged home with abx and rapid tapering doses of steroids along with dornase. Vital Signs Date Time Temp Pulse Resp B/P Pulse Ox O2 Delivery O2 Flow Rate FiO2 08/06/16 12:58 36.7 80 20 99 Room Air 08/06/16 07:06 112/62 On day of discharge, no chest pain anymore. No dyspnea. nad, aox3, anicteric s1 s2 rrr, no murmurs appreciated ctab no w/r/r abd soft nt/nd +BS no LE edema 1. RUL pneumonia - with pleurisy - improved - levaquin 750 for 5 more days - dornase for mucous plugs - steroids for pleurisy and rapid taper - she will need a follow-up with her PCP for a repeat chest xray in 4-6 weeks Total Time Spent: Less than 30 minutes This includes examination of the patient, discharge planning, medication reconciliation, and communication with other providers. Discharge Instructions Please refer to the electronic Patient Visit Report (Discharge Instructions) for additional information. Additional Copies To Malcolm Borrego M.D.
--- NOTE | 2016-08-06 12:05 | Discharge Instructions ---
Discharge Instructions Date of Service Aug 06, 2016. Admission Reason for Admission: Pneumonia, Back Pain Discharge Discharge Diagnosis / Problem: Pneumonia Discharge Goals Goal(s): Decrease discomfort, Improve function, Improve disease control Activity Recommendations Activity Limitations: resume your previous activity . Current Hospital Diet Patient's current hospital diet: Regular Diet Discharge Diet Recommended Diet: Regular Diet Pending Studies Studies pending at discharge: no Medical Emergencies . Who to Call and When: Medical Emergencies: If at any time you feel your situation is an emergency, please call 911 immediately. . Non-Emergent Contact Non-Emergency issues call your: Primary Care Provider . . "Provider Documentation" section prepared by Elvira Kan. . VTE Core Measure Inpt VTE Proph given/why not?: Enoxaparin (Lovenox)SQ
[2016-08-06 12:58] VITALS: BP 112/62; PULSE 80; TEMP 36.7; O2SAT 99
== END 2016-08-06 14:26 | disposition home or self-care (01) | DRG 194 ==
LOC: C.EDB 22:40 → C.MED 08-05 03:00
PROVIDERS: ADMIT Internal Medicine; ATTEND Internal Medicine
DX: J18.9 Pneumonia, unspecified organism (principal); J90 Pleural effusion, not elsewhere classified; J39.8 Other specified diseases of upper respiratory tract; Z87.440 Personal history of urinary (tract) infections; Z80.1 Family history of malignant neoplasm of trachea, bronchus and lung; Z80.42 Family history of malignant neoplasm of prostate; Z87.891 Personal history of nicotine dependence

== ENCOUNTER 2017-06-04 20:34 | Emergency (ER) | payer BC, OTHER ==
[~2017-06-04] VITALS: Ht 172.7 cm; Wt 113.0 kg
[~2017-06-04 20:34] MED LIST changes: +"\\\"MUSCLE RELAXER\\\"" PO; +PLMIH INH; +PRD20 PO; -PRLSR20 PO; -ZNTT/150 PO
[2017-06-04 20:39] VITALS: TEMP 36.6; Ht 172.7 cm; Wt 113.0 kg
[2017-06-04] MEDS ORDERED: PROPARACAINE HCL 0.5% OP SOLN 15 ML BTL OP STA (21:02)
[2017-06-04] MEDS ORDERED: CIPROFLOXACIN HCL 0.3% OP SOLN 2.5 ML BTL OPR STA (21:24)
--- NOTE | 2017-06-04 21:24 | EMERGENCY ROOM VISIT NOTE ---
ED Visit Note First contact with patient: 21:00 CHIEF COMPLAINT: Right eye pain and redness HISTORY OF PRESENT ILLNESS: This 26-year-old female presents to ER with chief complaint of right eye irritation and redness for the past several days but got worse this morning. The patient thought that her son scratched her eye. She took her contacts out yesterday when she woke up this morning her eye was worse. The patient denies any headaches or dizziness. The patient denies any trauma to the eye. REVIEW OF SYSTEMS: 6 system review was performed and was negative unless stated otherwise in history of present illness. PMH: The patient is healthy; nasal septum surgery SOCIAL HISTORY: Patient lives with her children. The patient denies any tobacco use but admits to occasional alcohol use. PHYSICAL EXAM: Vital Signs: Were reviewed reviewed Nurse's notes. GENERAL: This is a healthy-appearing 26-year-old female who is uncomfortable from the eye problem. MENTAL Status: Alert and oriented 3. EYES: The pupils are round , equal, and react to light. EOMs are full. There is discharge of clear tears from the right eye which is injected. There is no foreign body visible under athe eyelid even after lid eversion. Slit lamp exam revealed no foreign body was seen embedded in the cornea. The cornea was clear and no hyphema was seen. Fluorescein uptake was observed with ultraviolet light at at the 6 o'clock position over the inferior aspect of the iris. EMERGENCY DEPARTMENT COURSE: Alcaine eyedrops were placed into the right IV for evaluation. Slit lamp exam was performed. The fluorescein was irrigated away and Ciloxan eyedrops were placed into the right eye. the patient was given a [place] home pack. The patient was discharged to home in stable condition. DIAGNOSIS: Corneal abrasion DISCHARGE INSTRUCTIONS AND TREATMENT: Ibuprofen 600 mg every 6 hours with food for pain. Take [place] as needed for more severe pain. Do not drive while taking the [place]. Ciloxan eyedrops 2 drops into the right eye every 2 hours while awake for 2 days then 2 drops into the right eye every 4 hours while awake for an additional 3 days. Do not wear your contacts during this period of time. If symptoms are not improving by Tuesday, call Dr. Burgess for a follow-up appointment. Problem List Medical Problems: (1) Dizziness Status: Resolved (2) LABOR Status: Resolved (3) LABOR Status: Resolved (4) Status: Resolved (5) Urinary tract infection Status: Resolved Current/Historical Medications Scheduled Dornase Jacques (Pulmozyme), 2.5 ML INH BIDR Iud's (Paragard Intrauterine Manager Process Excellence), 1 DOSE VAGRING DIRECTED Prednisone (Prednisone), 20 MG PO DAILY ["Muscle Relaxer"], 1 DOSE PO DIRECTED Allergies Coded Allergies: No Known Allergies (Unverified , 08/04/16) Vital Signs Date Time Temp Pulse Resp B/P (MAP) Pulse Ox O2 Delivery O2 Flow Rate FiO2 06/04/17 20:39 36.6 77 18 115/78 99 Room Air Departure Information Referrals Malcolm Borrego M.D. (PCP) Patient Instructions My [facility]
[2017-06-04] MEDS ORDERED: NORCO 5/325MG HOME PACK PO ONE (21:30)
[2017-06-04 21:51] VITALS: BP 130/80; PULSE 78; O2SAT 98
== END 2017-06-04 21:52 | disposition home or self-care (01) ==
LOC: C.EDB 20:36 → C.EDD 21:52
DX: S05.01XA Injury of conjunctiva and corneal abrasion without foreign body, right eye, initial encounter (principal); X58.XXXA Exposure to other specified factors, initial encounter

== ENCOUNTER 2018-12-12 08:06 | Inpatient (IN) ==
[2018-12-12] MEDS ORDERED: PENICILLIN G POTASSIUM 6 MU in DEXTROSE 5% 250 ML IV STA (09:55)
[2018-12-12] MEDS ORDERED: OXYTOCIN 30 UNITS/500 ML BAG IV PRN ×2 (09:55→17:13)
[2018-12-12] MEDS: LACTATED RINGER'S 1,000 ML IV PRN (10:26)
[2018-12-12 10:36] LABS: Hematocrit (blood only) 32.1 % (37-47); Hemoglobin 10.5 g/dL (12.0-16.0); Mean Corpuscular Hemoglobin 27.2 pg (25-34); Mean Corpuscular Volume 83.2 fL (80-100); Mean Platelet Volume 10.3 fL (7.4-10.4); Platelet Count 283 K/uL (130-400); RDW Standard Deviation 45.3 fL (36.4-46.3); Red Blood Count 3.86 M/uL (4.2-5.4); White Blood Count 9.93 K/uL (4.8-10.8)
[2018-12-12] MEDS: miSOPROStol 50 MCG TAB PO SCH ×2 (10:44→17:06)
[2018-12-12 10:55] LABS: Alanine Aminotransferase 30 U/L (12-78); Albumin Level 2.5 gm/dl (3.4-5.0); Aspartate Aminotransferase 27 U/L (15-37); BUN Creatinine Ratio 12.4 (10-20); Blood Urea Nitrogen 6 mg/dl (7-18); Calcium 8.3 mg/dl (8.5-10.1); Carbon Dioxide 23 mmol/L (21-32); Chloride 109 mmol/L (98-107); Creatinine Clr Calc Pharmacy 246.3 ml/min; Est GFR (African American) > 150.0; Est GFR (Non-African American) 135.4; Glucose 106 mg/dl (70-99); Potassium 3.6 mmol/L (3.5-5.1); Sodium 138 mmol/L (136-145)
[2018-12-12 10:57] LABS: Albumin Globulin Ratio 0.7 (0.9-2); Alkaline Phosphatase 148 U/L (45-117); Bilirubin,Total 0.4 mg/dl (0.2-1); Globulin 3.8 gm/dl (2.5-4.0); Total Protein 6.3 gm/dl (6.4-8.2)
[2018-12-12 11:05] LABS: Mean Corpuscular Hgb Conc 32.7 g/dL (32-36)
--- NOTE | 2018-12-12 11:20 | History and Physical Report ---
DATE OF ADMISSION: 12/12/2018 HISTORY OF PRESENT ILLNESS: The patient is a 28-year-old G3, P2, due date is 12/17/2018 making her 39 weeks and 3 days today, who presented to Labor and Delivery for induction of labor because of class 2 obesity. The patient's has otherwise been unremarkable. LABS: Blood type O positive, antibody negative, GBS positive. PAST MEDICAL HISTORY: Significant for history of depression and anxiety. The patient is on antidepressants. PAST SURGICAL HISTORY: None. SOCIAL HISTORY: The patient denies tobacco, drug or alcohol use. FAMILY HISTORY: Noncontributory. ALLERGIES: No known drug allergies. MEDICATIONS: The patient is on iron tablets, Zoloft and vitamins. PHYSICAL EXAMINATION: GENERAL: Well-developed, well-nourished female, in no acute distress. HEART: S1, S2. Regular rhythm and rate. LUNGS: Clear to auscultation bilaterally. ABDOMEN: Gravid. Bedside ultrasound shows cephalic presentation. PELVIC: Fingertip, 50%, -2 station. Estimated weight by Karel's is 8-1/2 pounds. EXTREMITIES: No cyanosis, clubbing or edema. ASSESSMENT AND PLAN: A 28-year-old G3, P2 at 39 weeks and 3 days, induction of labor for class 2 obesity. course is otherwise unremarkable. [facility]
[2018-12-12] MEDS ORDERED: miSOPROStol 50 MCG TAB PO SCH (12:00)
[2018-12-12] MEDS: PENICILLIN G POTASSIUM 3 MU in DEXTROSE 5% 100 ML IV PRN ×3 (14:30→22:57)
--- NOTE | 2018-12-12 14:38 | Labor Progress Brief Note ---
Date of Service December 12, 2018 Met pt earlier admitted H&P done' FHR; CAT1 Ctx ; minimal Vagina exam done- ref to H&P Results & Data Vital Signs (Past 12 Hours) Vital Signs Temp Pulse Resp BP 12/12/18 14:29 97 H 122/69 12/12/18 14:28 36.6 C 12/12/18 13:07 18 12/12/18 11:46 18 12/12/18 11:31 96 H 138/82 12/12/18 11:29 36.7 C 12/12/18 11:00 18 12/12/18 10:00 12/12/18 09:53 112 H 136/74 12/12/18 09:00 18 12/12/18 08:17 36.6 C 12/12/18 08:13 120 H 136/78 12/12/18 08:11 36.6 C 18
[2018-12-12] MEDS ORDERED: fentaNYL 2MCG/ML ROPIV 1.25MG/ML 100 ML BAG EPI ONE (22:18)
[2018-12-12] MEDS ORDERED: BUPIVACAINE 0.25% 30 ML VIAL ONE (22:18)
[2018-12-12] MEDS ORDERED: fentaNYL citrate 100 MCG/2 ML VIAL ONE (22:18)
[2018-12-12] MEDS ORDERED: ePHEDrine sulfate 50 MG/ML AMP ONE (22:18)
--- NOTE | 2018-12-12 22:34 | Anesthesiology Consultation ---
Date of Service December 12, 2018 Assessment & Plan Chart Review Chart Review: Acceptable Risk for Surgery, Patient NOT seen in Pre Admission Testing and Acceptable Risk for Labor Epidural Consults Requested none ASA ASA3 Proposed Anesthesia Anesthesia Type: General and Labor Epidural Risk / Benefits Reviewed With: PT / POA / Parent / Guardian, Accepts Plan and Informed Consent Obtained History Height/Weight Height: 5 ft 8 in Weight: 123.747 kg Allergies Allergy/AdvReac Type Severity Reaction Status Date / Time No Known Allergies Allergy Verified 11/14/18 21:16 Medications Home Medications Medication Instructions Recorded Confirmed Last Taken PNV cmb#95-ferrous fumarate-FA 1 tab PO DAILY 05/27/18 12/12/18 12/12/18 [] ferrous sulfate 325 mg PO DAILY #30 tab 11/14/18 12/12/18 12/12/18 sertraline [Zoloft] 50 mg PO DAILY 12/12/18 12/12/18 12/12/18 Active Medications Generic Name Dose Route Start Last Admin Trade Name Freq PRN Reason Stop Dose Admin Lactated Ringer's 1,000 mls @ 125 mls/hr 12/12/18 09:55 12/12/18 22:29 Lr IV 12/14/18 09:54 999 mls/hr .Q8H PRN Infusion L&D Protocol Protocol Penicillin G Potassium 3 mu/ 106 mls @ 100 mls/hr 12/12/18 14:00 12/12/18 18:58 Dextrose IV 12/22/18 13:59 100 mls/hr Q4H PRN Administration Give until delivery Oxytocin 30 units in 500 mls @ 6 mls/hr 12/12/18 17:13 12/12/18 20:00 Pitocin IV 12/14/18 17:12 0.36 units/hr .Q24H PRN 6 mls/hr Labor Induction/Augmentation Titration Protocol 0.36 UNITS/HR Misoprostol 50 mcg 12/12/18 10:45 12/12/18 17:06 Cytotec PO 01/11/19 10:44 Not Given Q4H MAILE NPO Date Last Intake of Fluids: 12/12/18 Time Last Intake of Fluids: 20:00 Date Last Intake of Solids: 12/12/18 Time Last Intake of Solids: 08:00 Past Medical History Medical History Dizziness (Resolved) (Resolved) Urinary tract infection (Resolved) Anemia Obesity Anxiety and depression currently taking zoloft Deviated nasal septum surgery at age 6 Spontaneous vaginal delivery x2 [place] teeth extracted at age 17 Exercise / Class Metabolic Activity II 4-5 Yardwork/Stairs/Walk up hill Past Family History Family History Father Hypertension Grandmother (Paternal) No problems noted. Mother Diabetes Other No significant family history Past Anesthesia History No Hx of Anesthesia Complications and No Family Hx of Anesthesia Complications History of PONV No Hx of PONV and No Hx of Motion Sickness Social History Smoking Status: Never smoker Hx Alcohol Use: No Hx Substance Use: No Physical Exam Vital Signs Last Vital Signs Temp 36.7 C 12/12/18 19:24 Pulse 104 H 12/12/18 22:30 Resp 20 12/12/18 22:00 BP 130/84 12/12/18 22:26 Pulse Ox 100 12/12/18 22:30 Constitutional + morbidly obese ENMT Mouth: no dentition abnormality Thyromental Distance: < 3.5 Finger Breadths Mallampati Class: II Neck normal visual inspection and trachea midline; neck extension not limited Respiratory normal respiratory effort Auscultation: lungs clear to auscultation bilaterally Cardiovascular Rate/Rhythm: regular rate and regular rhythm Heart Sounds: no murmur Musculoskeletal Spine: lumbar spine normal to inspection; normal cervical ROM Neurologic moves all extremities Motor/Sensory: no sensory deficit Psychiatric Orientation: alert and oriented x 3 Testing Laboratory Results 12/12/18 10:19 12/12/18 10:19
[2018-12-12] MEDS ORDERED: ePHEDrine sulfate 50 MG/ML AMP IV PRN (22:58)
[2018-12-12] MEDS ORDERED: NALOXONE HCL 1 MG in SODIUM CHLORIDE 0.9% 1000ML 1,000 ML IV PRN (22:58)
[2018-12-12] MEDS ORDERED: NALBUPHINE HCL INJ 10 MG/ML AMP IV PRN (22:58)
[2018-12-12] MEDS ORDERED: DiphenhydrAMINE HCL 50 MG/ML VIAL IV PRN (22:58)
[2018-12-12] MEDS ORDERED: NALOXONE HCL 0.4 MG/1 ML VIAL/CARP IV PRN (22:58)
[2018-12-12] MEDS ORDERED: ONDANSETRON INJ 2 MG/ML 2 ML VIAL IV PRN (22:58)
[2018-12-12] MEDS ORDERED: PROMETHAZINE HCL 25 MG in SODIUM CHLORIDE 0.9% 50 ML IV PRN (22:58)
[2018-12-13] MEDS: LACTATED RINGER'S 1,000 ML IV PRN ×3 (03:10→17:19)
[2018-12-13] MEDS: PENICILLIN G POTASSIUM 3 MU in DEXTROSE 5% 100 ML IV PRN ×4 (03:10→15:15)
[2018-12-13] MEDS ORDERED: BUPIVACAINE 0.25% 30 ML VIAL ONE ×4 (04:19→10:03)
[2018-12-13] MEDS ORDERED: fentaNYL citrate 100 MCG/2 ML VIAL ONE ×3 (04:19→10:03)
--- NOTE | 2018-12-13 04:33 | Anesthesiology Progress Note ---
Date of Service December 13, 2018 pt c/o pain 11/18 at 0425, pt epidural was bolused with 12 ml 0.17% bupivacaine + 100 mcgs fentanyl;negative aspiration. Physical Exam Vital Signs: Last Vital Signs Temp 36.7 C 12/13/18 02:00 Pulse 96 H 12/13/18 04:28 Resp 20 12/13/18 03:30 BP 104/63 12/13/18 04:28 Pulse Ox 98 12/13/18 04:25 Results & Data Medications Administered Diphenhydramine HCl (Benadryl) 25 mg IV Q6H PRN PRN Reason: Itching Stop: 12/13/18 22:57 Last Admin: 12/12/18 23:24 Dose: 25 mg Documented by: [id number] Lactated Ringer's (Lr) 1,000 mls @ 125 mls/hr IV .Q8H PRN; Protocol PRN Reason: L&D Protocol Stop: 12/14/18 09:54 Last Admin: 12/13/18 03:10 Dose: 125 mls/hr Documented by: [id number] Infusion: 12/12/18 22:35 Dose: 999 mls/hr Documented by: [id number] Infusion: 12/12/18 22:29 Dose: 999 mls/hr Documented by: [id number] Infusion: 12/12/18 17:40 Dose: 125 mls/hr Documented by: [id number] Infusion: 12/12/18 15:35 Dose: 0 mls/hr Documented by: [id number] Infusion: 12/12/18 14:30 Dose: 125 mls/hr Documented by: [id number] Infusion: 12/12/18 11:46 Dose: 0 mls/hr Documented by: [id number] Admin: 12/12/18 10:26 Dose: 125 mls/hr Documented by: [id number] Penicillin G Potassium 3 mu/ (Dextrose) 106 mls @ 100 mls/hr IV Q4H PRN PRN Reason: Give until delivery Stop: 12/22/18 13:59 Last Admin: 12/13/18 03:10 Dose: 100 mls/hr Documented by: [id number] Infusion: 12/12/18 23:30 Dose: 0 mls/hr Documented by: [id number] Admin: 12/12/18 22:57 Dose: 100 mls/hr Documented by: [id number] Infusion: 12/12/18 20:02 Dose: 100 mls/hr Documented by: [id number] Admin: 12/12/18 18:58 Dose: 100 mls/hr Documented by: [id number] Infusion: 12/12/18 15:35 Dose: 0 mls/hr Documented by: [id number] Admin: 12/12/18 14:30 Dose: 100 mls/hr Documented by: [id number] Oxytocin (Pitocin) 30 units in 500 mls @ 16 mls/hr IV .Q24H PRN; Protocol PRN Reason: Labor Induction/Augmentation Stop: 12/14/18 17:12 Last Titration: 12/13/18 03:10 Dose: 0.96 units/hr, 16 mls/hr Documented by: [id number] Titration: 12/13/18 02:00 Dose: 0.84 units/hr, 14 mls/hr Documented by: [id number] Titration: 12/13/18 01:00 Dose: 0.72 units/hr, 12 mls/hr Documented by: [id number] Titration: 12/12/18 23:32 Dose: 0.6 units/hr, 10 mls/hr Documented by: [id number] Titration: 12/12/18 23:30 Dose: 0.48 units/hr, 8 mls/hr Documented by: [id number] Titration: 12/12/18 21:00 Dose: 0.48 units/hr, 8 mls/hr Documented by: [id number] Titration: 12/12/18 20:00 Dose: 0.36 units/hr, 6 mls/hr Documented by: [id number] Titration: 12/12/18 18:39 Dose: 0.24 units/hr, 4 mls/hr Documented by: [id number] Admin: 12/12/18 17:40 Dose: 0.12 units/hr, 2 mls/hr Documented by: [id number] Cosigned by: [id number] Misoprostol (Cytotec) 50 mcg PO Q4H MAILE Stop: 01/11/19 10:44 Last Admin: 12/12/18 17:06 Dose: Not Given Documented by: [id number] Admin: 12/12/18 10:44 Dose: 50 mcg Documented by: [id number]
--- NOTE | 2018-12-13 04:58 | Labor Progress Brief Note ---
Date of Service December 13, 2018 Pt doing well Epidural analgesia in Place FHR: CAT1 Ctx 2-4mins Pitocin; 16mu VE; 3/50/-2 AROM with FSE; Clear Results & Data Vital Signs (Past 12 Hours) Vital Signs Temp Pulse Resp BP Pulse Ox 12/13/18 04:50 95 H 98 12/13/18 04:47 94 H 116/56 L 12/13/18 04:45 109 H 99 12/13/18 04:42 115 H 140/78 12/13/18 04:40 113 H 98 12/13/18 04:36 103 H 119/59 L 12/13/18 04:35 106 H 97 12/13/18 04:34 96 H 113/59 L 12/13/18 04:32 94 H 109/63 12/13/18 04:30 101 H 20 108/62 96 12/13/18 04:28 96 H 104/63 12/13/18 04:27 107 H 114/58 L 12/13/18 04:25 102 H 98 12/13/18 04:21 102 H 114/57 L 12/13/18 04:20 102 H 99 12/13/18 04:15 104 H 100 12/13/18 04:10 112 H 100 12/13/18 04:06 99 H 102/56 L 12/13/18 04:05 97 H 98 12/13/18 04:00 99 H 98 12/13/18 03:55 92 H 99 12/13/18 03:52 96 H 132/59 L 92 12/13/18 03:50 97 H 98 12/13/18 03:45 93 H 99 12/13/18 03:40 91 H 97 12/13/18 03:37 101 H 130/78 12/13/18 03:35 99 H 98 12/13/18 03:30 111 H 20 100 12/13/18 03:25 102 H 100 12/13/18 03:21 103 H 114/60 12/13/18 03:20 102 H 99 12/13/18 03:15 96 H 97 12/13/18 03:10 96 H 96 12/13/18 03:06 90 119/64 12/13/18 03:05 95 H 97 12/13/18 03:00 96 H 96 12/13/18 02:55 96 H 97 12/13/18 02:51 95 H 119/68 12/13/18 02:50 94 H 97 12/13/18 02:45 103 H 98 12/13/18 02:40 119 H 98 12/13/18 02:36 99 H 114/62 12/13/18 02:35 99 H 97 12/13/18 02:30 97 H 20 96 12/13/18 02:25 120 H 98 12/13/18 02:21 96 H 115/68 12/13/18 02:20 90 97 12/13/18 02:15 100 H 99 12/13/18 02:10 110 H 99 12/13/18 02:06 96 H 120/74 12/13/18 02:05 95 H 99 12/13/18 02:00 36.7 C 99 H 20 100 12/13/18 01:55 119 H 98 12/13/18 01:51 106 H 107/61 12/13/18 01:50 104 H 97 12/13/18 01:45 91 H 97 12/13/18 01:40 96 H 96 12/13/18 01:36 99 H 112/60 12/13/18 01:35 98 H 98 12/13/18 01:30 115 H 97 12/13/18 01:25 100 H 98 12/13/18 01:21 97 H 114/65 12/13/18 01:20 86 95 12/13/18 01:15 100 H 99 12/13/18 01:12 103 H 93 12/13/18 01:10 110 H 98 12/13/18 01:06 102 H 114/67 12/13/18 01:05 92 H 96 12/13/18 01:03 92 H 94 12/13/18 01:00 92 H 96 12/13/18 00:59 20 12/13/18 00:56 88 94 12/13/18 00:55 119 H 98 12/13/18 00:51 104 H 110/57 L 12/13/18 00:50 106 H 96 12/13/18 00:45 93 H 94 12/13/18 00:41 93 H 94 12/13/18 00:40 112 H 97 12/13/18 00:36 98 H 117/66 94 12/13/18 00:35 81 95 12/13/18 00:30 118 H 20 97 12/13/18 00:25 92 H 97 12/13/18 00:21 112 H 113/75 12/13/18 00:20 113 H 97 12/13/18 00:15 95 H 97 12/13/18 00:10 95 H 98 12/13/18 00:06 102 H 113/72 12/13/18 00:05 97 H 98 12/13/18 00:00 94 H 20 97 12/12/18 23:55 88 96 12/12/18 23:52 96 H 108/56 L 12/12/18 23:50 124 H 99 12/12/18 23:45 91 H 20 98 12/12/18 23:40 85 98 12/12/18 23:36 96 H 129/76 12/12/18 23:35 102 H 100 12/12/18 23:30 89 20 99 12/12/18 23:25 109 H 98 12/12/18 23:20 96 H 100 12/12/18 23:15 90 100 12/12/18 23:10 102 H 99 12/12/18 23:05 100 H 18 99 12/12/18 23:04 107 H 126/86 12/12/18 23:00 36.9 C 104 H 20 99 12/12/18 22:57 102 H 135/65 12/12/18 22:55 114 H 20 124/62 99 12/12/18 22:53 93 H 123/66 12/12/18 22:51 126 H 125/70 12/12/18 22:50 110 H 20 100 12/12/18 22:49 103 H 121/80 12/12/18 22:47 94 H 119/75 12/12/18 22:45 100 H 100 12/12/18 22:40 100 H 100 12/12/18 22:35 99 H 100 12/12/18 22:30 104 H 20 100 12/12/18 22:26 97 H 130/84 12/12/18 22:25 100 H 100 12/12/18 22:00 20 12/12/18 21:30 20 12/12/18 21:25 96 H 130/79 12/12/18 20:25 96 H 138/89 12/12/18 20:00 20 12/12/18 19:25 102 H 141/92 H 12/12/18 19:24 36.7 C 20 12/12/18 19:00 18 12/12/18 18:40 100 H 129/90 12/12/18 18:30 18 12/12/18 17:49 96 H 140/76 12/12/18 17:48 36.8 C 18 12/12/18 17:30 18
[2018-12-13] MEDS: fentaNYL 2MCG/ML ROPIV 1.25MG/ML 100 ML BAG EPI PRN ×4 (05:07→16:53)
[2018-12-13] MEDS ORDERED: Nursing to Pharmacy Communication ONE ×3 (06:09→14:05)
--- NOTE | 2018-12-13 06:38 | Anesthesiology Progress Note ---
Date of Service December 13, 2018 pt c/o pain 11/18 at 0635,pt epidural bolused w/ 12 ml 0.17% bupivacaine + 100 mcgs fentanyl;neg. aspiration;vital signs stable. Physical Exam Vital Signs: Last Vital Signs Temp 37.0 C 12/13/18 04:55 Pulse 91 H 12/13/18 06:35 Resp 20 12/13/18 06:00 BP 100/57 L 12/13/18 06:34 Pulse Ox 99 12/13/18 06:35 Results & Data Medications Administered Diphenhydramine HCl (Benadryl) 25 mg IV Q6H PRN PRN Reason: Itching Stop: 12/13/18 22:57 Last Admin: 12/12/18 23:24 Dose: 25 mg Documented by: [id number] Lactated Ringer's (Lr) 1,000 mls @ 125 mls/hr IV .Q8H PRN; Protocol PRN Reason: L&D Protocol Stop: 12/14/18 09:54 Last Admin: 12/13/18 03:10 Dose: 125 mls/hr Documented by: [id number] Infusion: 12/12/18 22:35 Dose: 999 mls/hr Documented by: [id number] Infusion: 12/12/18 22:29 Dose: 999 mls/hr Documented by: [id number] Infusion: 12/12/18 17:40 Dose: 125 mls/hr Documented by: [id number] Infusion: 12/12/18 15:35 Dose: 0 mls/hr Documented by: [id number] Infusion: 12/12/18 14:30 Dose: 125 mls/hr Documented by: [id number] Infusion: 12/12/18 11:46 Dose: 0 mls/hr Documented by: [id number] Admin: 12/12/18 10:26 Dose: 125 mls/hr Documented by: [id number] Penicillin G Potassium 3 mu/ (Dextrose) 106 mls @ 100 mls/hr IV Q4H PRN PRN Reason: Give until delivery Stop: 12/22/18 13:59 Last Infusion: 12/13/18 04:15 Dose: 0 mls/hr Documented by: [id number] Admin: 12/13/18 03:10 Dose: 100 mls/hr Documented by: [id number] Infusion: 12/12/18 23:30 Dose: 0 mls/hr Documented by: [id number] Admin: 12/12/18 22:57 Dose: 100 mls/hr Documented by: [id number] Infusion: 12/12/18 20:02 Dose: 100 mls/hr Documented by: [id number] Admin: 12/12/18 18:58 Dose: 100 mls/hr Documented by: [id number] Infusion: 12/12/18 15:35 Dose: 0 mls/hr Documented by: [id number] Admin: 12/12/18 14:30 Dose: 100 mls/hr Documented by: [id number] Oxytocin (Pitocin) 30 units in 500 mls @ 16 mls/hr IV .Q24H PRN; Protocol PRN Reason: Labor Induction/Augmentation Stop: 12/14/18 17:12 Last Titration: 12/13/18 03:10 Dose: 0.96 units/hr, 16 mls/hr Documented by: [id number] Titration: 12/13/18 02:00 Dose: 0.84 units/hr, 14 mls/hr Documented by: [id number] Titration: 12/13/18 01:00 Dose: 0.72 units/hr, 12 mls/hr Documented by: [id number] Titration: 12/12/18 23:32 Dose: 0.6 units/hr, 10 mls/hr Documented by: [id number] Titration: 12/12/18 23:30 Dose: 0.48 units/hr, 8 mls/hr Documented by: [id number] Titration: 12/12/18 21:00 Dose: 0.48 units/hr, 8 mls/hr Documented by: [id number] Titration: 12/12/18 20:00 Dose: 0.36 units/hr, 6 mls/hr Documented by: [id number] Titration: 12/12/18 18:39 Dose: 0.24 units/hr, 4 mls/hr Documented by: [id number] Admin: 12/12/18 17:40 Dose: 0.12 units/hr, 2 mls/hr Documented by: [id number] Cosigned by: [id number] Misoprostol (Cytotec) 50 mcg PO Q4H MAILE Stop: 01/11/19 10:44 Last Admin: 12/12/18 17:06 Dose: Not Given Documented by: [id number] Admin: 12/12/18 10:44 Dose: 50 mcg Documented by: [id number] Ropivacaine (Epidural (L&D)) 100 ml EPI PRN PRN; Protocol PRN Reason: Pain R/T Labor Stop: 12/13/18 22:57 Last Admin: 12/13/18 06:03 Dose: 14 ml Documented by: [id number] Cosigned by: [id number] Admin: 12/13/18 05:07 Dose: 14 ml Documented by: [id number] Cosigned by: [id number]
[2018-12-13] MEDS ORDERED: ePHEDrine sulfate 50 MG/ML AMP ONE (10:03)
[2018-12-13] MEDS ORDERED: fentaNYL 2MCG/ML ROPIV 1.25MG/ML 100 ML BAG EPI ONE (10:03)
--- NOTE | 2018-12-13 10:22 | Anesthesiology Progress Note ---
Date of Service December 13, 2018 Subjective The patient has had her epidural redosed several times without relief. Her ep idural will be pulled and replaced. The patient agrees with this plan. Physical Exam Vital Signs: Last Vital Signs Temp 36.4 C L 12/13/18 08:45 Pulse 114 H 12/13/18 10:17 Resp 18 12/13/18 09:42 BP 136/96 12/13/18 10:15 Pulse Ox 82 L 12/13/18 10:17 ENMT: Mouth: no TMJ abnormality Thyromental Distance: > or= 3.5 Finger Breadths Mallampati Class: II Neck: normal visual inspection Respiratory: normal respiratory effort Auscultation: lungs clear to auscultation bilaterally Cardiovascular: Rate/Rhythm: regular rate and regular rhythm Musculoskeletal: Spine: normal cervical ROM Neurologic: moves all extremities Psychiatric: Orientation: alert and oriented x 3 Results & Data Medications Administered Diphenhydramine HCl (Benadryl) 25 mg IV Q6H PRN PRN Reason: Itching Stop: 12/13/18 22:57 Last Admin: 12/12/18 23:24 Dose: 25 mg Documented by: [id number] Lactated Ringer's (Lr) 1,000 mls @ 125 mls/hr IV .Q8H PRN; Protocol PRN Reason: L&D Protocol Stop: 12/14/18 09:54 Last Infusion: 12/13/18 07:11 Dose: 125 mls/hr Documented by: [id number] Admin: 12/13/18 03:10 Dose: 125 mls/hr Documented by: [id number] Infusion: 12/12/18 22:35 Dose: 999 mls/hr Documented by: [id number] Infusion: 12/12/18 22:29 Dose: 999 mls/hr Documented by: [id number] Infusion: 12/12/18 17:40 Dose: 125 mls/hr Documented by: [id number] Infusion: 12/12/18 15:35 Dose: 0 mls/hr Documented by: [id number] Infusion: 12/12/18 14:30 Dose: 125 mls/hr Documented by: [id number] Infusion: 12/12/18 11:46 Dose: 0 mls/hr Documented by: [id number] Admin: 12/12/18 10:26 Dose: 125 mls/hr Documented by: [id number] Penicillin G Potassium 3 mu/ (Dextrose) 106 mls @ 100 mls/hr IV Q4H PRN PRN Reason: Give until delivery Stop: 12/22/18 13:59 Last Infusion: 12/13/18 08:11 Dose: 0 mls/hr Documented by: [id number] Admin: 12/13/18 07:09 Dose: 100 mls/hr Documented by: [id number] Infusion: 12/13/18 04:15 Dose: 0 mls/hr Documented by: [id number] Admin: 12/13/18 03:10 Dose: 100 mls/hr Documented by: [id number] Infusion: 12/12/18 23:30 Dose: 0 mls/hr Documented by: [id number] Admin: 12/12/18 22:57 Dose: 100 mls/hr Documented by: [id number] Infusion: 12/12/18 20:02 Dose: 100 mls/hr Documented by: [id number] Admin: 12/12/18 18:58 Dose: 100 mls/hr Documented by: [id number] Infusion: 12/12/18 15:35 Dose: 0 mls/hr Documented by: [id number] Admin: 12/12/18 14:30 Dose: 100 mls/hr Documented by: [id number] Oxytocin (Pitocin) 30 units in 500 mls @ 22 mls/hr IV .[id number] PRN; Protocol PRN Reason: Labor Induction/Augmentation Stop: 12/14/18 17:12 Last Titration: 12/13/18 08:42 Dose: 1.32 units/hr, 22 mls/hr Documented by: [id number] Titration: 12/13/18 07:30 Dose: 1.2 units/hr, 20 mls/hr Documented by: [id number] Titration: 12/13/18 07:11 Dose: 1.08 units/hr, 18 mls/hr Documented by: [id number] Titration: 12/13/18 06:30 Dose: 1.08 units/hr, 18 mls/hr Documented by: [id number] Titration: 12/13/18 03:10 Dose: 0.96 units/hr, 16 mls/hr Documented by: [id number] Titration: 12/13/18 02:00 Dose: 0.84 units/hr, 14 mls/hr Documented by: [id number] Titration: 12/13/18 01:00 Dose: 0.72 units/hr, 12 mls/hr Documented by: [id number] Titration: 12/12/18 23:32 Dose: 0.6 units/hr, 10 mls/hr Documented by: [id number] Titration: 12/12/18 23:30 Dose: 0.48 units/hr, 8 mls/hr Documented by: [id number] Titration: 12/12/18 21:00 Dose: 0.48 units/hr, 8 mls/hr Documented by: [id number] Titration: 12/12/18 20:00 Dose: 0.36 units/hr, 6 mls/hr Documented by: [id number] Titration: 12/12/18 18:39 Dose: 0.24 units/hr, 4 mls/hr Documented by: [id number] Admin: 12/12/18 17:40 Dose: 0.12 units/hr, 2 mls/hr Documented by: [id number] Cosigned by: [id number] Misoprostol (Cytotec) 50 mcg PO Q4H MAILE Stop: 01/11/19 10:44 Last Admin: 12/12/18 17:06 Dose: Not Given Documented by: [id number] Admin: 12/12/18 10:44 Dose: 50 mcg Documented by: [id number] Ropivacaine (Epidural (L&D)) 100 ml EPI PRN PRN; Protocol PRN Reason: Pain R/T Labor Stop: 12/13/18 22:57 Last Admin: 12/13/18 07:03 Dose: 14 ml Documented by: [id number] Cosigned by: [id number] Admin: 12/13/18 06:03 Dose: 14 ml Documented by: [id number] Cosigned by: [id number] Admin: 12/13/18 05:07 Dose: 14 ml Documented by: [id number] Cosigned by: [id number]
[2018-12-13] MEDS ORDERED: METHYLERGONOVINE MALEATE 0.2 MG/ML AMP ONE (18:19)
[2018-12-13] MEDS ORDERED: METHYLERGONOVINE MALEATE 0.2 MG/ML AMP IM ONE (18:27)
[2018-12-13] MEDS ORDERED: ACETAMINOPHEN 325 MG TAB PO PRN (18:27)
[2018-12-13] MEDS ORDERED: miSOPROStol 200 MCG TAB PR ONE (18:27)
[2018-12-13] MEDS ORDERED: BENZOCAINE 20% AER SPR 82.5 GM CAN EXT PRN (18:27)
[2018-12-13] MEDS ORDERED: DIPHTHERIA/TETANUS/PERTUSSIS 0.5 ML SYR/VIAL IM ONE (18:27)
[2018-12-13] MEDS ORDERED: SUPERCREAM 0.870% 15 GM JAR EXT PRN (18:27)
[2018-12-13] MEDS ORDERED: BISACODYL 10 MG SUPP PR PRN (18:27)
[2018-12-13] MEDS ORDERED: HYDROCORTISONE ACETATE 25 MG SUPP PR PRN (18:27)
[2018-12-13] MEDS ORDERED: OXYTOCIN 30 UNITS/500 ML BAG IV PRN (18:27)
[2018-12-13] MEDS: IBUPROFEN 600 MG TAB PO PRN (21:37)
--- NOTE | 2018-12-13 22:38 | Delivery Summary ---
DATE OF OPERATION: 12/13/2018 DELIVERY NOTE: This is a 3, para 3, blood type is O positive, group B strep positive, who was admitted for induction due to class 2 obesity. She was given IV Pitocin. Pitocin was gradually increased. She had a good regular contraction pattern, eventually went to full dilatation. Towards the end, we had to turn back the Pitocin a little bit because of type 1 decels and she delivered a live via direct occiput anterior position over an intact perineum. There was a tight nuchal cord over the head which could not be reduced. Moderate amount of shoulder dystocia, I pulled up on the head to get the posterior shoulder down deep in the pelvis and then went anteriorly along with some suprapubic pressure from the nurse. We dislodged the anterior shoulder and then delivered the infant. Right towards the end, I cut the nuchal cord by clamping it in 2 places and cutting in between and I also suctioned the through the mouth and the nose prior to delivery. After delivery of the , I handed it off to the nurse. Cord blood was taken. With IV Pitocin running, the placenta was removed intact. There was a big gush of blood. We gave her IM Methergine and then 800 mcg of Cytotec rectally. With that, she contracted nicely. The perineum was intact. Estimated blood loss was 500 mL. Apgars were deferred to the nurses. The patient tolerated the delivery well. I attest to the content of the Intraoperative Record and any orders documented therein. Any exception s are noted below.
[2018-12-14] MEDS: IBUPROFEN 600 MG TAB PO PRN ×4 (03:24→20:08)
[2018-12-14 07:34] LABS: Hematocrit (blood only) 33.7 % (37-47); Hemoglobin 10.9 g/dL (12.0-16.0); Mean Corpuscular Hemoglobin 27.1 pg (25-34); Mean Corpuscular Hgb Conc 32.3 g/dL (32-36); Mean Corpuscular Volume 83.8 fL (80-100); Mean Platelet Volume 10.6 fL (7.4-10.4); Platelet Count 290 K/uL (130-400); RDW Coefficient of Variation 15.3 % (11.5-14.5); RDW Standard Deviation 46.8 fL (36.4-46.3); Red Blood Count 4.02 M/uL (4.2-5.4); White Blood Count 17.46 K/uL (4.8-10.8)
[2018-12-14] MEDS: DOCUSATE SODIUM 100 MG CAP PO SCH ×2 (07:54→20:11)
[2018-12-14] MEDS: PRENATAL VITAMIN 1 TAB PO SCH (07:54)
[2018-12-14] MEDS: SERTRALINE HCL 50 MG TABLET PO SCH (09:58)
[2018-12-14] MEDS: miSOPROStol 50 MCG TAB PO SCH (11:36)
[2018-12-14] MEDS ORDERED: BISACODYL 5 MG TABEC PO SCH (20:00)
[2018-12-15 07:03] LABS: Hemoglobin 9.7 g/dL (12.0-16.0)
[2018-12-15] MEDS: PRENATAL VITAMIN 1 TAB PO SCH (08:15)
[2018-12-15] MEDS: DOCUSATE SODIUM 100 MG CAP PO SCH (08:15)
[2018-12-15] MEDS: SERTRALINE HCL 50 MG TABLET PO SCH (08:15)
[2018-12-15 08:29] LABS: Basophils # (auto) 0.02 K/uL (0-0.2); Basophils % (auto) 0.2 %; Eosinophils # (auto) 0.92 K/uL (0-0.5); Eosinophils % (auto) 8.2 %; Hematocrit (blood only) 32.1 % (37-47); Hemoglobin 10.4 g/dL (12.0-16.0); Immature Granulocytes # (auto) 0.04 K/uL (0.00-0.02); Immature Granulocytes % (auto) 0.4 %; Lymphocytes # (auto) 2.75 K/uL (1.2-3.4); Lymphocytes % (auto) 24.5 %; Mean Corpuscular Hemoglobin 27.2 pg (25-34); Mean Corpuscular Hgb Conc 32.4 g/dL (32-36); Mean Corpuscular Volume 83.8 fL (80-100); Mean Platelet Volume 9.9 fL (7.4-10.4); Monocytes % (auto) 9.8 %; Neutrophils # (auto) 6.39 K/uL (1.4-6.5); Neutrophils % (auto) 56.9 %; Platelet Count 263 K/uL (130-400); RDW Coefficient of Variation 15.5 % (11.5-14.5); RDW Standard Deviation 47.5 fL (36.4-46.3); Red Blood Count 3.83 M/uL (4.2-5.4); White Blood Count 11.22 K/uL (4.8-10.8)
--- NOTE | 2018-12-15 09:05 | Obstetrical Progress Note ---
Date of Service December 15, 2018 Subjective Patient is seen and examined. She feels well, no complaints. Ambulating without dizziness Voiding without difficulty Tolerating regular diet with out N&V Bleeding is minimal No fever/ chills/ CP/ SOB/ N&V/ Leg pain Breast and bottle feeding without problems Plans to have Mirena IUD for contraception Vital Signs Temp Pulse Resp BP Pulse Ox 12/15/18 08:00 36.5 C 77 18 116/80 100 12/14/18 23:00 36.4 C L 77 18 116/77 12/14/18 16:10 36.3 C L 85 18 125/81 12/14/18 11:35 36.6 C 91 H 18 120/90 Lab Results 12/12/18 12/12/18 12/14/18 Range/Units 10:19 10:19 06:54 WBC 9.93 17.46 H (4.8-10.8) K/uL RBC 3.86 L 4.02 L (4.2-5.4) M/uL Hgb 10.5 L 10.9 L (12.0-16.0) g/dL Hct 32.1 L 33.7 L (37-47) % MCV 83.2 83.8 (80-100) fL MCH 27.2 27.1 (25-34) pg MCHC 32.7 32.3 (32-36) g/dL RDW Std Deviation 45.3 46.8 H (36.4-46.3) fL RDW Coeff of Mely 15.0 H 15.3 H (11.5-14.5) % Plt Count 283 290 (130-400) K/uL MPV 10.3 10.6 H (7.4-10.4) fL Immature Gran % (Auto) % Neut % (Auto) % Lymph % (Auto) % Bradley % (Auto) % Eos % (Auto) % Baso % (Auto) % Immature Gran # (Auto) (0.00-0.02) K/uL Neut # (Auto) (1.4-6.5) K/uL Lymph # (Auto) (1.2-3.4) K/uL Bradley # (Auto) (0.11-0.59) K/uL Eos # (Auto) (0-0.5) K/uL Baso # (Auto) (0-0.2) K/uL Sodium 138 (136-145) mmol/L Potassium 3.6 (3.5-5.1) mmol/L Chloride 109 H (98-107) mmol/L Carbon Dioxide 23 (21-32) mmol/L Anion Gap 6.0 (3-11) BUN 6 L (7-18) mg/dl Creatinine 0.48 L (0.6-1.2) mg/dl Est Cr Clr Drug Dosing 246.3 ml/min Est GFR ( Amer) > 150.0 Est GFR (Non-Af Amer) 135.4 BUN/Creatinine Ratio 12.4 (10-20) Glucose 106 H (70-99) mg/dl Calcium 8.3 L (8.5-10.1) mg/dl Total Bilirubin 0.4 (0.2-1) mg/dl AST 27 (15-37) U/L ALT 30 (12-78) U/L Alkaline Phosphatase 148 H (45-117) U/L Total Protein 6.3 L (6.4-8.2) gm/dl Albumin 2.5 L (3.4-5.0) gm/dl Globulin 3.8 (2.5-4.0) gm/dl Albumin/Globulin Ratio 0.7 L (0.9-2) 12/15/18 12/15/18 Range/Units 06:46 08:14 WBC 11.22 H (4.8-10.8) K/uL RBC 3.83 L (4.2-5.4) M/uL Hgb 9.7 L 10.4 L (12.0-16.0) g/dL Hct 30.0 L 32.1 L (37-47) % MCV 83.8 (80-100) fL MCH 27.2 (25-34) pg MCHC 32.4 (32-36) g/dL RDW Std Deviation 47.5 H (36.4-46.3) fL RDW Coeff of Mely 15.5 H (11.5-14.5) % Plt Count 263 (130-400) K/uL MPV 9.9 (7.4-10.4) fL Immature Gran % (Auto) 0.4 % Neut % (Auto) 56.9 % Lymph % (Auto) 24.5 % Bradley % (Auto) 9.8 % Eos % (Auto) 8.2 % Baso % (Auto) 0.2 % Immature Gran # (Auto) 0.04 H (0.00-0.02) K/uL Neut # (Auto) 6.39 (1.4-6.5) K/uL Lymph # (Auto) 2.75 (1.2-3.4) K/uL Bradley # (Auto) 1.10 H (0.11-0.59) K/uL Eos # (Auto) 0.92 H (0-0.5) K/uL Baso # (Auto) 0.02 (0-0.2) K/uL Sodium (136-145) mmol/L Potassium (3.5-5.1) mmol/L Chloride (98-107) mmol/L Carbon Dioxide (21-32) mmol/L Anion Gap (3-11) BUN (7-18) mg/dl Creatinine (0.6-1.2) mg/dl Est Cr Clr Drug Dosing ml/min Est GFR ( Amer) Est GFR (Non-Af Amer) BUN/Creatinine Ratio (10-20) Glucose (70-99) mg/dl Calcium (8.5-10.1) mg/dl Total Bilirubin (0.2-1) mg/dl AST (15-37) U/L ALT (12-78) U/L Alkaline Phosphatase (45-117) U/L Total Protein (6.4-8.2) gm/dl Albumin (3.4-5.0) gm/dl Globulin (2.5-4.0) gm/dl Albumin/Globulin Ratio (0.9-2) PE: General: Alert, orientedx3, NAD Abd: soft, NT, fundus firm, below Umbilicus Perineum intact, Lochia rubra minimal Ext; NT, no edema AP: 28 yo s/p , ppd# 2 VSS Afebrile doing well Continue routine care All questions were answered Discussed when to call D/C home , f/u in office Results & Data Vital Signs (Past 12 Hours) Vital Signs Temp Pulse Resp BP Pulse Ox 12/15/18 08:00 36.5 C 77 18 116/80 100 12/14/18 23:00 36.4 C L 77 18 116/77
== END 2018-12-15 12:15 | disposition home or self-care (01) | DRG 807 ==
LOC: 4S1 08:06 → 4S2 12-13 21:57